=== PATIENT | male | born 1930 | race African-American/Black ===

== ENCOUNTER 2017-07-08 12:32 | Inpatient (IN) | payer OTHER ==
--- NOTE | 2017-07-08 12:52 | Emergency Department Report ---
Chief Complaint: Abdominal Pain Stated Complaint: RIGHT UPPER QUAD PAIN Time Seen by Provider: 07/08/17 12:49 - HPI History of Present Illness: PT brought to ED for RUQ pain. PT was seen at [facility] and told to go to ED. - ROS Review of Systems: + abd pain + abd swellin + constipation - vomiting - Exam Physical Exam: abd rounded, RUQ ttp MSE screening note: Focused history and physical exam performed. Due to findings the following was ordered: labs, us ED Disposition for MSE Condition: Stable
--- NOTE | 2017-07-08 14:30 | Ultrasound Report ---
Ultrasound of the right upper quadrant. History: Right upper quadrant pain. Findings: The abdominal aorta and liver are normal. The gallbladder is normal in size. There are low level dependent echoes within the gallbladder lumen with no acoustic shadowing. The wall of the gallbladder is normal in thickness. The common duct is normal in caliber. The right kidney is on the low side of normal measuring 8.7 cm in longitudinal axis. There is increased echogenicity of the renal parenchyma. There is no evidence of renal mass or hydronephrosis. The pancreas is not well-demonstrated due to technical factors. Impression: 1. Gallbladder sludge. 2. Evidence of medical renal disease.
--- NOTE | 2017-07-08 14:40 | Emergency Department Report ---
ED Abdominal Pain HPI - General Chief Complaint: Abdominal Pain Stated Complaint: RIGHT UPPER QUAD PAIN Time Seen by Provider: 07/08/17 12:49 Source: family Mode of arrival: Ambulatory Limitations: Language Barrier - History of Present Illness Initial Comments: 86-year-old male here with complaints of 3 days of abdominal pain. Patient is very tender in his right upper quadrant. He's been having some fever and nausea but no vomiting. He feels fairly uncomfortable. He is [place] speaking and I'm using his son as an retail sales advisor. He's had no blood in his stool but has felt somewhat constipated. MD Complaint: abdominal pain -: Gradual, days(s) (3) Location: RUQ Radiation: none Migration to: no migration Severity: moderate Consistency: constant, colicky Improves With: nothing Worsens With: nothing Associated Symptoms: nausea, fever. denies: vomiting, diarrhea - Related Data Allergies Allergy/AdvReac Type Severity Reaction Status Date / Time No Known Allergies Allergy Unverified 07/08/17 14:16 ED Review of Systems ROS: Stated complaint: RIGHT UPPER QUAD PAIN Other details as noted in HPI Comment: All other systems reviewed and negative Constitutional: denies: chills, fever ENT: denies: ear pain, throat pain Respiratory: denies: cough, shortness of breath, wheezing Cardiovascular: denies: chest pain, palpitations Endocrine: no symptoms reported Gastrointestinal: abdominal pain, nausea. denies: diarrhea Genitourinary: denies: urgency, dysuria Musculoskeletal: denies: back pain, joint swelling, arthralgia Skin: denies: rash, lesions Neurological: denies: headache, weakness, paresthesias Psychiatric: denies: anxiety, depression Hematological/Lymphatic: denies: easy bleeding, easy bruising ED Past Medical Hx - Past Medical History Previous Medical History?: Yes Hx Hypertension: Yes - Family History Family history: no significant - Social History Smoking Status: Never Smoker Substance Use Type: None ED Physical Exam - General Limitations: Language Barrier General appearance: alert, in no apparent distress - Head Head exam: Present: atraumatic, normocephalic - Eye Eye exam: Present: normal appearance. Absent: scleral icterus, conjunctival injection - ENT ENT exam: Present: mucous membranes moist - Neck Neck exam: Present: normal inspection. Absent: lymphadenopathy, thyromegaly - Respiratory Respiratory exam: Present: normal lung sounds bilaterally. Absent: respiratory distress - Cardiovascular Cardiovascular Exam: Present: regular rate, normal rhythm. Absent: systolic murmur, diastolic murmur, rubs, gallop - GI/Abdominal GI/Abdominal exam: Present: soft, distended, tenderness, guarding, normal bowel sounds, hypoactive bowel sounds. Absent: rebound - Rectal Rectal exam: Present: deferred - Extremities Exam Extremities exam: Present: normal inspection - Back Exam Back exam: Present: normal inspection - Neurological Exam Neurological exam: Present: alert, oriented X3 - Psychiatric Psychiatric exam: Present: normal affect, normal mood - Skin Skin exam: Present: warm, dry, intact, normal color. Absent: rash ED Course Vital Signs 07/08/17 07/08/17 12:48 14:39 Temperature 98.4 F 98.4 F Pulse Rate 95 H 80 Respiratory 16 20 Rate Blood Pressure 112/66 Blood Pressure 148/91 [Left] O2 Sat by Pulse 96 94 Oximetry ED Medical Decision Making - Lab Data Result diagrams: 07/08/17 Unknown Laboratory Results - last 24 hr 07/08/17 07/08/17 07/08/17 15:06 Unknown Unknown Sodium 134 L Potassium 5.1 H Chloride 99.8 Carbon Dioxide 18 L Anion Gap 21 BUN 28 H Creatinine 2.8 H Estimated GFR 22 BUN/Creatinine Ratio 10 Glucose 132 H Lactic Acid 1.70 Calcium 8.7 Total Bilirubin 0.70 AST 44 H ALT 45 Alkaline Phosphatase 195 H Ammonia 26.0 Total Protein 7.4 Albumin 3.9 Albumin/Globulin Ratio 1.1 Lipase 40 - Radiology Data Radiology results: report reviewed, image reviewed - Medical Decision Making 86-year-old male with complaint of abdominal pain and right upper quadrant tenderness. Patient has felt worse for the last 3 days and fever. His ultrasound shows only sludge. Pending labs. Concern for biliary/abdominal/ liver pathology. CT of abdomen ordered as ultrasound not definitive. CBC still pending. Discussed case with hospitalist and plan to admit the patient to the hospitalist service. Portions of this chart were dictated with dictation software. There may be dictation errors contained within this note. Critical care attestation.: If time is entered above; I have spent that time in minutes in the direct care of this critically ill patient, excluding procedure time. ED Disposition Clinical Impression: Abdominal pain Disposition: - OP ADMIT IP TO THIS HOSP Is pt being admited?: Yes Condition: Stable Referrals: PRIMARY CARE,MD [Primary Care Provider] - 3-5 Days
[2017-07-08] MEDS ORDERED: NACL 0.9% 1000 ML 1,000 ML IV ONE (14:43)
[2017-07-08 15:12] LABS: Albumin 3.9 g/dL (3.9-5); Bilirubin,Total 0.7 mg/dL (0.1-1.2); Calcium 8.7 mg/dL (8.4-10.2); Total Protein 7.4 g/dL (6.3-8.2)
[2017-07-08 15:13] LABS: Albumin/Globulin Ratio 1.1 %; Chloride 99.8 mmol/L (98-107); Potassium 5.1 mmol/L (3.6-5.0)
[2017-07-08 15:44] LABS: Hematocrit 34.6 % (35.5-45.6); Hemoglobin 11.3 gm/dl (11.8-15.2); Mean Corpuscular HGB Conc 33 % (32-34); Mean Corpuscular Hemoglobin 30 pg (28-32); Mean Corpuscular Volume 91 fl (84-94); Platelet Count 229 K/mm3 (140-440); Red Blood Count 3.81 M/mm3 (3.65-5.03); Red Cell Distribution Width 14.2 % (13.2-15.2)
[2017-07-08 15:49] LABS: White Blood Count 20.7 K/mm3 (4.5-11.0)
[2017-07-08 15:52] LABS: INR 1.17 (0.87-1.13)
[2017-07-08 15:54] LABS: Partial Thromboplastin Time 56.2 Sec. (24.2-36.6)
--- NOTE | 2017-07-08 16:25 | Cat Scan Report ---
CT of the abdomen and pelvis without contrast. History: Right upper quadrant pain. Findings: There is a small right pleural effusion. The heart is enlarged. The liver, spleen, and pancreas are normal. Gallbladder is enlarged with thickening of gallbladder [place] and extensive pericholecystic inflammatory changes. No definite evidence of gallstones. A large left renal cyst is present. There are no other significant renal abnormalities. There is no adenopathy within the retroperitoneum. The prostate is moderately enlarged. No additional pelvic masses are seen. The Impression: Enlarged gallbladder with marked thickening of the gallbladder wall and extensive pericholecystic inflammatory changes. No gallstones are seen. Acalculus cholecystitis is suspected. A nuclear hepatobiliary scan may be useful. 2. Left renal cyst. 3. Nonspecific prostatic enlargement.
[2017-07-08] MEDS ORDERED: ZOSYN/NS 4.5GM/100ML 4.5 GM/100 ML VIAL IV ONE (16:26)
[2017-07-08 16:27] LABS: Bilirubin,Urine NEG (Negative); Blood,Urine NEG (Negative); Ketones,Urine NEG (Negative); Leukocyte Esterase,Urine NEG (Negative); Mucus,Urine FEW /HPF; Nitrite,Urine NEG (Negative); Urobilinogen,Urine < 2.0 mg/dL (<2.0)
--- NOTE | 2017-07-08 16:41 | Event Note ---
Date: 07/08/17 CT scan suggests acalculous cholecystitis. Leukocytosis of 20 is noted and appreciated. Case is discussed with general surgeon on-call, Dr. Warren, who agrees to follow in consultation. He recommends HIDA nuclear medicine study, nothing by mouth after midnight, and no narcotics for at least 8 hours prior to acquisition of nuclear medicine study. He agrees with IV antibiotics. Vital Signs 07/08/17 07/08/17 07/08/17 12:48 14:39 16:11 Temperature 98.4 F 98.4 F 98.8 F Pulse Rate 95 H 80 98 H Respiratory 16 20 24 Rate Blood Pressure 112/66 Blood Pressure 148/91 139/69 [Left] O2 Sat by Pulse 96 94 95 Oximetry Lab Results 07/08/17 07/08/17 07/08/17 Range/Units 15:06 16:08 Unknown WBC 20.7 H (4.5-11.0) K/mm3 RBC 3.81 (3.65-5.03) M/mm3 Hgb 11.3 L (11.8-15.2) gm/dl Hct 34.6 L (35.5-45.6) % MCV 91 (84-94) fl MCH 30 (28-32) pg MCHC 33 (32-34) % RDW 14.2 (13.2-15.2) % Plt Count 229 (140-440) K/mm3 PT (12.2-14.9) Sec. INR (0.87-1.13) APTT (24.2-36.6) Sec. Sodium (137-145) mmol/L Potassium (3.6-5.0) mmol/L Chloride (98-107) mmol/L Carbon Dioxide (22-30) mmol/L Anion Gap mmol/L BUN (9-20) mg/dL Creatinine (0.8-1.5) mg/dL Estimated GFR ml/min BUN/Creatinine Ratio % Glucose (75-100) mg/dL Lactic Acid 1.70 (0.7-2.0) mmol/L Calcium (8.4-10.2) mg/dL Total Bilirubin (0.1-1.2) mg/dL AST (5-40) units/L ALT (7-56) units/L Alkaline Phosphatase (35-129) units/L Ammonia (25-60) umol/L Total Protein (6.3-8.2) g/dL Albumin (3.9-5) g/dL Albumin/Globulin Ratio % Lipase (13-60) units/L Urine Color Green (Yellow) Urine Turbidity Clear (Clear) Urine pH 5.0 (5.0-7.0) Ur Specific [place] 1.016 (1.003-1.030) Urine Protein 100 mg/dl (Negative) mg/dL Urine Glucose (UA) 50 (Negative) mg/dL Urine Ketones Neg (Negative) mg/dL Urine Blood Neg (Negative) Urine Nitrite Neg (Negative) Urine Bilirubin Neg (Negative) Urine Urobilinogen < 2.0 (<2.0) mg/dL Ur Leukocyte Esterase Neg (Negative) Urine WBC (Auto) 1.0 (0.0-6.0) /HPF Urine RBC (Auto) 2.0 (0.0-6.0) /HPF Amorphous Crystals Few Urine Mucus Few /HPF 07/08/17 07/08/17 07/08/17 Range/Units Unknown Unknown Unknown WBC (4.5-11.0) K/mm3 RBC (3.65-5.03) M/mm3 Hgb (11.8-15.2) gm/dl Hct (35.5-45.6) % MCV (84-94) fl MCH (28-32) pg MCHC (32-34) % RDW (13.2-15.2) % Plt Count (140-440) K/mm3 PT 15.5 H (12.2-14.9) Sec. INR 1.17 H (0.87-1.13) APTT 56.2 H (24.2-36.6) Sec. Sodium 134 L (137-145) mmol/L Potassium 5.1 H (3.6-5.0) mmol/L Chloride 99.8 (98-107) mmol/L Carbon Dioxide 18 L (22-30) mmol/L Anion Gap 21 mmol/L BUN 28 H (9-20) mg/dL Creatinine 2.8 H (0.8-1.5) mg/dL Estimated GFR 22 ml/min BUN/Creatinine Ratio 10 % Glucose 132 H (75-100) mg/dL Lactic Acid (0.7-2.0) mmol/L Calcium 8.7 (8.4-10.2) mg/dL Total Bilirubin 0.70 (0.1-1.2) mg/dL AST 44 H (5-40) units/L ALT 45 (7-56) units/L Alkaline Phosphatase 195 H (35-129) units/L Ammonia 26.0 (25-60) umol/L Total Protein 7.4 (6.3-8.2) g/dL Albumin 3.9 (3.9-5) g/dL Albumin/Globulin Ratio 1.1 % Lipase 40 (13-60) units/L Urine Color (Yellow) Urine Turbidity (Clear) Urine pH (5.0-7.0) Ur Specific [place] (1.003-1.030) Urine Protein (Negative) mg/dL Urine Glucose (UA) (Negative) mg/dL Urine Ketones (Negative) mg/dL Urine Blood (Negative) Urine Nitrite (Negative) Urine Bilirubin (Negative) Urine Urobilinogen (<2.0) mg/dL Ur Leukocyte Esterase (Negative) Urine WBC (Auto) (0.0-6.0) /HPF Urine RBC (Auto) (0.0-6.0) /HPF Amorphous Crystals Urine Mucus /HPF
--- NOTE | 2017-07-08 17:05 | Progress Note ---
Assessment and Plan Full consult dictateds 86 y/o male c/o RUQ abd pain Abd 1+ distended. RUQ tenderness CT abd - distended GB wall with thickened wall and surrounding inflammation imp r/o acute cholecystitis pt has compromised renal function. enlarged heart on X-ray. age. high surgical risk rec IR eval for cholecystosotomy tube drainage keep npo start IV zosyn will follow thanks. Objective Vital Signs - 12hr 07/08/17 07/08/17 07/08/17 12:48 14:39 16:11 Temperature 98.4 F 98.4 F 98.8 F Pulse Rate 95 H 80 98 H Respiratory 16 20 24 Rate Blood Pressure 112/66 Blood Pressure 148/91 139/69 [Left] O2 Sat by Pulse 96 94 95 Oximetry - Labs 07/08/17 Unknown 07/08/17 Unknown Diabetes panel 07/08/17 Range/Units Unknown Sodium 134 L (137-145) mmol/L Potassium 5.1 H (3.6-5.0) mmol/L Chloride 99.8 (98-107) mmol/L Carbon Dioxide 18 L (22-30) mmol/L BUN 28 H (9-20) mg/dL Creatinine 2.8 H (0.8-1.5) mg/dL Glucose 132 H (75-100) mg/dL Calcium 8.7 (8.4-10.2) mg/dL AST 44 H (5-40) units/L ALT 45 (7-56) units/L Alkaline Phosphatase 195 H (35-129) units/L Total Protein 7.4 (6.3-8.2) g/dL Albumin 3.9 (3.9-5) g/dL Calcium panel 07/08/17 Range/Units Unknown Calcium 8.7 (8.4-10.2) mg/dL Albumin 3.9 (3.9-5) g/dL Pituitary panel 07/08/17 Range/Units Unknown Sodium 134 L (137-145) mmol/L Potassium 5.1 H (3.6-5.0) mmol/L Chloride 99.8 (98-107) mmol/L Carbon Dioxide 18 L (22-30) mmol/L BUN 28 H (9-20) mg/dL Creatinine 2.8 H (0.8-1.5) mg/dL Glucose 132 H (75-100) mg/dL Calcium 8.7 (8.4-10.2) mg/dL Adrenal panel 07/08/17 Range/Units Unknown Sodium 134 L (137-145) mmol/L Potassium 5.1 H (3.6-5.0) mmol/L Chloride 99.8 (98-107) mmol/L Carbon Dioxide 18 L (22-30) mmol/L BUN 28 H (9-20) mg/dL Creatinine 2.8 H (0.8-1.5) mg/dL Glucose 132 H (75-100) mg/dL Calcium 8.7 (8.4-10.2) mg/dL Total Bilirubin 0.70 (0.1-1.2) mg/dL AST 44 H (5-40) units/L ALT 45 (7-56) units/L Alkaline Phosphatase 195 H (35-129) units/L Total Protein 7.4 (6.3-8.2) g/dL Albumin 3.9 (3.9-5) g/dL
[2017-07-08 17:35] LABS: Hematocrit 34.4 % (35.5-45.6); Hemoglobin 11.3 gm/dl (11.8-15.2); Mean Corpuscular HGB Conc 33 % (32-34); Mean Corpuscular Hemoglobin 30 pg (28-32); Mean Corpuscular Volume 90 fl (84-94); Platelet Count 214 K/mm3 (140-440); Red Cell Distribution Width 13.9 % (13.2-15.2)
[2017-07-08 17:36] LABS: Basophils % (Manual) 0 % (0.0-1.8); Blastocytes % (Manual) 0 %; Eosinophils % (Manual) 0 % (0.0-4.3); Platelet Estimate Consistent w Auto; RBC Morphology Normal; Total Cells Counted Percent 0
[2017-07-08 17:37] LABS: Diff Status Complete
[2017-07-08 17:37] LABS: White Blood Count 20.9 K/mm3 (4.5-11.0)
[2017-07-08] MEDS ORDERED: SUBLIMAZE IV ONE (18:02)
[2017-07-08 18:15] LABS: Albumin 3.6 g/dL (3.9-5); Albumin/Globulin Ratio 1.4 %; Bilirubin,Total 0.8 mg/dL (0.1-1.2); Calcium 7.8 mg/dL (8.4-10.2); Chloride 104.3 mmol/L (98-107); Potassium 5.2 mmol/L (3.6-5.0); Total Protein 6.2 g/dL (6.3-8.2)
[2017-07-08] MEDS ORDERED: ATIVAN ONE (18:44)
[2017-07-08] MEDS ORDERED: ATIVAN IV ONE (18:53)
--- NOTE | 2017-07-08 20:50 | History and Physical Report ---
History of Present Illness Date of examination: 07/08/17 Date of admission: 07/08/2017 Chief complaint: Chief complaint: Acute abdominal pain for 2 days History of present illness: History of present illness: A 56-year-old male presents with 2 days of severe abdominal pain. Pain is in the right upper quadrant. Patient also has a low-grade fever and nausea but no vomiting. Pain is about 10 on a scale of 1- 10. Son is at the bedside was the food and drink factory workers. No hematemesis or melena. Pain is sharp in nature. No exacerbating or relieving factors. Pain is localized. No radiation. His surgery symptoms of nausea and fever no vomiting no diarrhea. In the emergency room patient became delirious and confused after the CAT scan was done. Patient also expressed suicidal thoughts for a moment and then he was better. Patient able to go to the restroom but with help . Review of System: Constitutional: no fever, no chills, no weight loss Ears, eyes, nose, mouth and throat: no nasal congestion, no nasal discharge, no sinus pressure, no vision change, no red eye. Neck: No neck pain or rigidity. Cardiovascular: No chest pain, no orthopnea, no palpitations, no leg swelling Respiratory: No shortness of breath, no cough, no congestion, no wheezing Gastrointestinal: Acute abdominal pain, nausea present, no vomiting no hematemesis no melena Genitourinary : no dysuria, no hematuria Musculoskeletal: no joint swelling or muscle ache Integumentary: no rash, no pruritis Neurological: no parathesias, no numbness, no tingling Endocrine: no cold or heat intolerance, no polyuria or polydipsia Hematologic/Lymphatic: no easy bruising, no easy bleeding, no gland swelling Allergic/Immunologic: no urticaria, no angioedema Past History Past Medical History: GERD, hypertension, hyperlipidemia Past Surgical History: No surgical history Social history: no significant social history, lives with family Family history: hypertension Medications and Allergies Allergies Allergy/AdvReac Type Severity Reaction Status Date / Time No Known Allergies Allergy Unverified 07/08/17 14:16 Home Medications Medication Instructions Recorded Confirmed Last Taken Type AtorvaSTATin [Lipitor] 40 mg PO QHS 07/08/17 07/08/17 07/07/17 History Gabapentin [Neurontin] 100 mg PO Q8HR 07/08/17 07/08/17 07/07/17 History Ranitidine HCl [Acid Coat Maker] 150 mg PO PRN 07/08/17 07/08/17 07/08/17 History amLODIPine [Norvasc] 10 mg PO DAILY 07/08/17 07/08/17 07/07/17 History Doxycycline [Vibramycin CAP] 100 mg PO BID 14 Days 07/14/17 Unknown Rx Oxycodone HCl/Acetaminophen 1 each PO Q6HR PRN #20 tablet 07/14/17 Unknown Rx [Percocet 2.5/325 mg] Review of Systems All systems: negative Exam - Physical Exam Narrative exam: In moderate distress secondary to abdominal pain - Constitutional Vitals: Temp Pulse Resp BP Pulse Ox 98.8 F 105 H 28 H 120/64 95 07/08/17 16:11 07/08/17 19:30 07/08/17 19:30 07/08/17 19:30 07/08/17 19:30 General appearance: Present: mild distress, well-nourished - EENT Eyes: Present: PERRL ENT: hearing intact, clear oral mucosa - Neck Neck: Present: supple, normal ROM - Respiratory Respiratory effort: normal Respiratory: bilateral: CTA - Cardiovascular Heart rate: 80 Rhythm: regular Heart Sounds: Present: S1 & S2. Absent: rub, click - Extremities Extremities: no ischemia, pulses intact, pulses symmetrical, No edema Peripheral Pulses: within normal limits - Abdominal General gastrointestinal: Present: tender, normal bowel sounds, other ( regarding present in right upper quadrant) Localized gastrointestinal: guarding: diffuse, RUQ, rebound: RUQ Male genitourinary: Present: normal - Rectal Rectal Exam: stool brown - Integumentary Integumentary: Present: clear, warm, dry - Musculoskeletal Musculoskeletal: gait normal, strength equal bilaterally - Psychiatric Psychiatric: appropriate mood/affect, intact judgment & insight - Neurologic Neurologic: CNII-XII intact, moves all extremities - Allied Health Allied health notes reviewed: nursing, case management Results - Labs CBC & Chem 7: 07/14/17 03:39 07/14/17 03:39 Labs: Laboratory Last Values WBC 20.7 K/mm3 (4.5-11.0) H 07/08/17 Unknown RBC 3.81 M/mm3 (3.65-5.03) 07/08/17 Unknown Hgb 11.3 gm/dl (11.8-15.2) L 07/08/17 Unknown Hct 34.6 % (35.5-45.6) L 07/08/17 Unknown MCV 91 fl (84-94) 07/08/17 Unknown MCH 30 pg (28-32) 07/08/17 Unknown MCHC 33 % (32-34) 07/08/17 Unknown RDW 14.2 % (13.2-15.2) 07/08/17 Unknown Plt Count 229 K/mm3 (140-440) 07/08/17 Unknown Add Manual Diff Complete 07/08/17 Unknown Total Counted 100 07/08/17 Unknown Seg Neuts % (Manual) 2.0 % (40.0-70.0) L 07/08/17 Unknown Band Neutrophils % 89.0 % 07/08/17 Unknown Lymphocytes % (Manual) 9.0 % (13.4-35.0) L 07/08/17 Unknown Reactive Lymphs % (Man) 0 % 07/08/17 Unknown Monocytes % (Manual) 0 % (0.0-7.3) 07/08/17 Unknown Eosinophils % (Manual) 0 % (0.0-4.3) 07/08/17 Unknown Basophils % (Manual) 0 % (0.0-1.8) 07/08/17 Unknown Metamyelocytes % 0 % 07/08/17 Unknown Myelocytes % 0 % 07/08/17 Unknown Promyelocytes % 0 % 07/08/17 Unknown Blast Cells % 0 % 07/08/17 Unknown Nucleated RBC % Not Reportable 07/08/17 Unknown Seg Neutrophils # Man 0.4 K/mm3 (1.8-7.7) L 07/08/17 Unknown Band Neutrophils # 18.4 K/mm3 07/08/17 Unknown Lymphocytes # (Manual) 1.9 K/mm3 (1.2-5.4) 07/08/17 Unknown Abs React Lymphs (Man) 0.0 K/mm3 07/08/17 Unknown Monocytes # (Manual) 0.0 K/mm3 (0.0-0.8) 07/08/17 Unknown Eosinophils # (Manual) 0.0 K/mm3 (0.0-0.4) 07/08/17 Unknown Basophils # (Manual) 0.0 K/mm3 (0.0-0.1) 07/08/17 Unknown Metamyelocytes # 0.0 K/mm3 07/08/17 Unknown Myelocytes # 0.0 K/mm3 07/08/17 Unknown Promyelocytes # 0.0 K/mm3 07/08/17 Unknown Blast Cells # 0.0 K/mm3 07/08/17 Unknown WBC Morphology Not Reportable 07/08/17 Unknown Hypersegmented Neuts Not Reportable 07/08/17 Unknown Hyposegmented Neuts Not Reportable 07/08/17 Unknown Hypogranular Neuts Not Reportable 07/08/17 Unknown Hypersegmented Polys Cancelled 07/08/17 17:11 Smudge Cells Not Reportable 07/08/17 Unknown Toxic Granulation Not Reportable 07/08/17 Unknown Toxic Vacuolation Not Reportable 07/08/17 Unknown Dohle Bodies Not Reportable 07/08/17 Unknown Pelger-Huet Anomaly Not Reportable 07/08/17 Unknown Emperatriz Rods Not Reportable 07/08/17 Unknown Platelet Estimate Consistent w auto 07/08/17 Unknown Clumped Platelets Not Reportable 07/08/17 Unknown Plt Clumps, EDTA Not Reportable 07/08/17 Unknown Large Platelets Not Reportable 07/08/17 Unknown Giant Platelets Not Reportable 07/08/17 Unknown Platelet Satelliting Not Reportable 07/08/17 Unknown Plt Morphology Comment Not Reportable 07/08/17 Unknown RBC Morphology Normal 07/08/17 Unknown Dimorphic RBCs Not Reportable 07/08/17 Unknown Polychromasia Not Reportable 07/08/17 Unknown Hypochromasia Not Reportable 07/08/17 Unknown Poikilocytosis Not Reportable 07/08/17 Unknown Basophilic Stippling Cancelled 07/08/17 17:11 Anisocytosis Not Reportable 07/08/17 Unknown Microcytosis Not Reportable 07/08/17 Unknown Macrocytosis Not Reportable 07/08/17 Unknown Spherocytes Not Reportable 07/08/17 Unknown Pappenheimer Bodies Not Reportable 07/08/17 Unknown Sickle Cells Not Reportable 07/08/17 Unknown Target Cells Not Reportable 07/08/17 Unknown Tear Drop Cells Not Reportable 07/08/17 Unknown Ovalocytes Not Reportable 07/08/17 Unknown Stomatocytes Cancelled 07/08/17 17:11 Helmet Cells Not Reportable 07/08/17 Unknown [place] Bodies Not Reportable 07/08/17 Unknown Lutcher Rings Not Reportable 07/08/17 Unknown Christopher Cells Not Reportable 07/08/17 Unknown Bite Cells Not Reportable 07/08/17 Unknown Crenated Cell Not Reportable 07/08/17 Unknown Elliptocytes Not Reportable 07/08/17 Unknown Acanthocytes (Spur) Not Reportable 07/08/17 Unknown Rouleaux Not Reportable 07/08/17 Unknown Hemoglobin C Crystals Not Reportable 07/08/17 Unknown Schistocytes Not Reportable 07/08/17 Unknown Malaria parasites Not Reportable 07/08/17 Unknown Madhav Bodies Not Reportable 07/08/17 Unknown Hem Pathologist Commnt No 07/08/17 Unknown PT 15.5 Sec. (12.2-14.9) H 07/08/17 Unknown INR 1.17 (0.87-1.13) H 07/08/17 Unknown APTT 56.2 Sec. (24.2-36.6) H 07/08/17 Unknown Sodium 134 mmol/L (137-145) L 07/08/17 Unknown Potassium 5.1 mmol/L (3.6-5.0) H 07/08/17 Unknown Chloride 99.8 mmol/L (98-107) 07/08/17 Unknown Carbon Dioxide 18 mmol/L (22-30) L 07/08/17 Unknown Anion Gap 21 mmol/L 07/08/17 Unknown BUN 28 mg/dL (9-20) H 07/08/17 Unknown Creatinine 2.8 mg/dL (0.8-1.5) H 07/08/17 Unknown Estimated GFR 22 ml/min 07/08/17 Unknown BUN/Creatinine Ratio 10 % 07/08/17 Unknown Glucose 132 mg/dL (75-100) H 07/08/17 Unknown Lactic Acid 1.70 mmol/L (0.7-2.0) 07/08/17 15:06 Calcium 8.7 mg/dL (8.4-10.2) 07/08/17 Unknown Total Bilirubin 0.70 mg/dL (0.1-1.2) 07/08/17 Unknown AST 44 units/L (5-40) H 07/08/17 Unknown ALT 45 units/L (7-56) 07/08/17 Unknown Alkaline Phosphatase 195 units/L (35-129) H 07/08/17 Unknown Ammonia 26.0 umol/L (25-60) 07/08/17 Unknown Total Protein 7.4 g/dL (6.3-8.2) 07/08/17 Unknown Albumin 3.9 g/dL (3.9-5) 07/08/17 Unknown Albumin/Globulin Ratio 1.1 % 07/08/17 Unknown Amylase 59 units/L (27-131) 07/08/17 17:11 Lipase 40 units/L (13-60) 07/08/17 Unknown Urine Color Green (Yellow) 07/08/17 16:08 Urine Turbidity Clear (Clear) 07/08/17 16:08 Urine pH 5.0 (5.0-7.0) 07/08/17 16:08 Ur Specific [place] 1.016 (1.003-1.030) 07/08/17 16:08 Urine Protein 100 mg/dl mg/dL (Negative) 07/08/17 16:08 Urine Glucose (UA) 50 mg/dL (Negative) 07/08/17 16:08 Urine Ketones Neg mg/dL (Negative) 07/08/17 16:08 Urine Blood Neg (Negative) 07/08/17 16:08 Urine Nitrite Neg (Negative) 07/08/17 16:08 Urine Bilirubin Neg (Negative) 07/08/17 16:08 Urine Urobilinogen < 2.0 mg/dL (<2.0) 07/08/17 16:08 Ur Leukocyte Esterase Neg (Negative) 07/08/17 16:08 Urine WBC (Auto) 1.0 /HPF (0.0-6.0) 07/08/17 16:08 Urine RBC (Auto) 2.0 /HPF (0.0-6.0) 07/08/17 16:08 Amorphous Crystals Few 07/08/17 16:08 Urine Mucus Few /HPF 07/08/17 16:08 - Imaging and Cardiology EKG: report reviewed CT scan - abdomen: report reviewed (enlarged gallbladder with moderate thickening of the gallbladder wall and extensive pericholecystic inflammatory changes. No gallstones are seen. Acalculous cholecystitis is suspected a nuclear hepatobiliary scan may be useful) Assessment and Plan Advance Directives: Yes (full code) VTE prophylaxis?: Chemical Plan of care discussed with patient/family: Yes - Patient Problems (1) Sepsis Status: Acute Qualifiers: Sepsis type: sepsis due to unspecified organism Qualified Code(s): A41.9 - Sepsis, unspecified organism Plan to address problem: Secondary to cholecystitis. Patient initiated on IV fluids and IV Zosyn. Lactic acid ordered. (2) Acute cholecystitis Status: Acute Plan to address problem: Surgery was consulted. Agree with the surgical consult. Patient to get cholecystostomy because of his age and being very frail. No cholecystectomy at this point. Patient also to get IV fluids and IV antibiotics in the form of IV Zosyn for broad-spectrum coverage. (3) Hypertension Status: Chronic Qualifiers: Hypertension type: essential hypertension Qualified Code(s): I10 - Essential (primary) hypertension Plan to address problem: Continue Catapres patch TTS 1 every weekly. We will hold his oral antihypertensives (4) Hyperlipidemia Status: Chronic Qualifiers: Hyperlipidemia type: mixed hyperlipidemia Qualified Code(s): E78.2 - Mixed hyperlipidemia Plan to address problem: We will hold the statins for time being and resume at the time of discharge (5) Gastroesophageal reflux disease Status: Chronic Qualifiers: Esophagitis presence: without esophagitis Qualified Code(s): K21.9 - Gastro -esophageal reflux disease without esophagitis Plan to address problem: Patient on Protonix. (6) Hyperkalemia Status: Acute Plan to address problem: Mild. Should correct with IV fluids (7) Delirium Status: Acute Plan to address problem: Probably secondary to sepsis and cholecystitis. IV Dilaudid for pain when necessary (8) Suicidal ideation Status: Acute Plan to address problem: Very fleeting and is resolved. Mental health consult requested. 1013 initiated. (9) DVT prophylaxis Status: Acute Plan to address problem: SCDs only at this point
[2017-07-08] MEDS ORDERED: DULCOLAX PR PRN (20:51)
[2017-07-08] MEDS ORDERED: TYLENOL PO PRN (20:51)
[2017-07-08] MEDS ORDERED: MILK OF MAGNESIA PO PRN (20:51)
[2017-07-08] MEDS ORDERED: D5NS 1,000 ML IV SCH (21:00)
[2017-07-08] MEDS ORDERED: PROTONIX IV SCH (22:00)
[2017-07-08] MEDS ORDERED: ZOSYN/NS 4.5GM/100ML 4.5 GM/100 ML VIAL IV SCH (22:00)
[2017-07-08] MEDS ORDERED: PEPCID IV SCH ×2 (22:00)
[2017-07-08] MEDS ORDERED: CATAPRES-TTS PATCH TD SCH ×2 (22:00)
[2017-07-08] MEDS ORDERED: PEPCID IV ONE (22:10)
[2017-07-08] MEDS: PEPCID IV SCH (22:11)
--- NOTE | 2017-07-09 00:24 | Consultation ---
REASON FOR CONSULTATION: Rule out acute cholecystitis. HISTORY OF PRESENT ILLNESS: The patient is a pleasant 86-year-old [place] gentleman who does not speak Polish. History is taken through an landscape engineer and family member. The patient is being admitted through the ER at this time with a chief complaint of right upper quadrant abdominal pain. Denies any nausea or vomiting, but \\"is not eating much.\\" He also has been running a low-grade temperature at home. PAST MEDICAL HISTORY: Pertinent for what appears to be decreased renal function. Family states that the patient underwent dialysis for a time while in [place], but currently is off dialysis. Also, history of hypertension. PAST SURGICAL HISTORY: Negative. ALLERGIES: No known allergies. MEDICATIONS: Include amlodipine and gabapentin. FAMILY HISTORY: Negative. SOCIAL HISTORY: Denies any smoking or drinking. REVIEW OF SYSTEMS: Noncontributory. PHYSICAL EXAMINATION: GENERAL: At this time reveals, the patient to be awake, alert, cooperative, in moderate discomfort, but no acute distress. VITAL SIGNS: Temperature is currently not on chart. Blood pressure 142/73, pulse of 96, respirations of 22. HEENT: Pupils are equal and reactive to light and accommodation. Sclerae are nonicteric at this time. ABDOMEN: Examination of the abdomen reveals it to be 1+ distended with some mild tenderness noted in the right upper quadrant. Bowel sounds are somewhat hypoactive. LABORATORY DATA: Lab work at present includes a CBC, which shows a white count of 20.7, H and H is 11.3 and 34.6. PT is 15.5, PTT is also elevated at 56.2. BUN is 28, but creatinine is elevated at 2.8. Electrolytes show high potassium of 5.1. LFTs are essentially normal. Bilirubin is 0.7. AST is slightly elevated at 44, ALT is normal at 45 and alkaline phosphatase is slightly elevated at 195. Gallbladder ultrasound as well as CT scan of the abdomen had been performed, which I have reviewed with Dr. Klein, radiologist. Though no stones are seen on ultrasound, there is a question of a possible sludge. CT scan, however, is impressive as far as delineating an enlarged gallbladder with thickened gallbladder wall and surrounding inflammation. IMPRESSION: 1. At this time is that of an 86-year-old gentleman with renal disease and elevated creatinine. 2. Questionable heart disease with an enlarged heart on x-rays. 3. Rule out acute cholecystitis. RECOMMENDATIONS: At this time is to keep the patient n.p.o., start IV fluid hydration. Start IV Zosyn. We will consult interventional radiologist to assess for possible CT-guided cholecystostomy tube drainage. We will follow up closely with you. Thank you very much for consultation. JOB# [id number] JAIR/NTS
[2017-07-09] MEDS: ZOSYN/NS 4.5GM/100ML 4.5 GM/100 ML VIAL IV SCH ×2 (04:45→17:10)
[2017-07-09 05:44] LABS: Basophils % (Auto) 0.2 % (0.0-1.8); Eosinophils % (Auto) 0.6 % (0.0-4.3); Hematocrit 31.4 % (35.5-45.6); Hemoglobin 10.2 gm/dl (11.8-15.2); Mean Corpuscular HGB Conc 33 % (32-34); Mean Corpuscular Hemoglobin 29 pg (28-32); Mean Corpuscular Volume 90 fl (84-94); Platelet Count 220 K/mm3 (140-440); Red Blood Count 3.47 M/mm3 (3.65-5.03); Red Cell Distribution Width 14.3 % (13.2-15.2); White Blood Count 15.5 K/mm3 (4.5-11.0)
[2017-07-09 06:05] LABS: Albumin 3.2 g/dL (3.9-5); Albumin/Globulin Ratio 0.9 %; Calcium 7.9 mg/dL (8.4-10.2); Potassium 4.6 mmol/L (3.6-5.0); Total Protein 6.8 g/dL (6.3-8.2)
--- NOTE | 2017-07-09 07:55 | Progress Note ---
Assessment and Plan HD #1 Pt status quo. could not communicate with him as no family to translate in room at present. Abd exam - unchanged lower wbc noted. on zosyn awaiting IR eval for cholecystostomy tube drainage Selected Entries 07/09/17 04:05 Temperature 98.8 F Respiratory 20 Rate Blood Pressure 142/78 [Left] Laboratory Tests 07/08/17 07/09/17 07/09/17 Unknown 05:28 05:28 WBC 20.7 H 15.5 H Hgb 11.3 L 10.2 L Hct 34.6 L 31.4 L Sodium 139 Potassium 4.6 Carbon Dioxide 16 L BUN 24 H Creatinine 2.9 H Total Bilirubin 1.00 AST 16 ALT 20 Alkaline Phosphatase 168 H Objective Vital Signs - 12hr 07/08/17 07/08/17 07/08/17 21:00 21:15 21:30 Temperature Pulse Rate 109 H 101 H 94 H Pulse Rate [ Right Dorsalis Pedis] Respiratory 17 28 H 23 Rate Blood Pressure 143/66 143/66 130/71 Blood Pressure [Left] O2 Sat by Pulse 95 98 98 Oximetry 07/08/17 07/08/17 07/08/17 21:45 22:00 22:11 Temperature Pulse Rate 93 H 93 H 99 H Pulse Rate [ Right Dorsalis Pedis] Respiratory 17 23 Rate Blood Pressure 130/71 135/70 135/70 Blood Pressure [Left] O2 Sat by Pulse 97 97 Oximetry 07/08/17 07/08/17 07/09/17 22:15 23:48 01:39 Temperature 99.2 F Pulse Rate 90 104 H Pulse Rate [ 102 H Right Dorsalis Pedis] Respiratory 19 18 16 Rate Blood Pressure 135/70 Blood Pressure 127/73 [Left] O2 Sat by Pulse 99 95 95 Oximetry 07/09/17 04:05 Temperature 98.8 F Pulse Rate 95 H Pulse Rate [ Right Dorsalis Pedis] Respiratory 20 Rate Blood Pressure Blood Pressure 142/78 [Left] O2 Sat by Pulse 96 Oximetry - Labs 07/09/17 05:28 07/09/17 05:28 Diabetes panel 07/08/17 07/09/17 Range/Units Unknown 05:28 Sodium 134 L 139 (137-145) mmol/L Potassium 5.1 H 4.6 (3.6-5.0) mmol/L Chloride 99.8 106.0 (98-107) mmol/L Carbon Dioxide 18 L 16 L (22-30) mmol/L BUN 28 H 24 H (9-20) mg/dL Creatinine 2.8 H 2.9 H (0.8-1.5) mg/dL Glucose 132 H 122 H (75-100) mg/dL Calcium 8.7 7.9 L (8.4-10.2) mg/dL AST 44 H 16 (5-40) units/L ALT 45 20 (7-56) units/L Alkaline Phosphatase 195 H 168 H (35-129) units/L Total Protein 7.4 6.8 (6.3-8.2) g/dL Albumin 3.9 3.2 L (3.9-5) g/dL Calcium panel 07/08/17 07/09/17 Range/Units Unknown 05:28 Calcium 8.7 7.9 L (8.4-10.2) mg/dL Albumin 3.9 3.2 L (3.9-5) g/dL Pituitary panel 07/08/17 07/09/17 Range/Units Unknown 05:28 Sodium 134 L 139 (137-145) mmol/L Potassium 5.1 H 4.6 (3.6-5.0) mmol/L Chloride 99.8 106.0 (98-107) mmol/L Carbon Dioxide 18 L 16 L (22-30) mmol/L BUN 28 H 24 H (9-20) mg/dL Creatinine 2.8 H 2.9 H (0.8-1.5) mg/dL Glucose 132 H 122 H (75-100) mg/dL Calcium 8.7 7.9 L (8.4-10.2) mg/dL Adrenal panel 07/08/17 07/09/17 Range/Units Unknown 05:28 Sodium 134 L 139 (137-145) mmol/L Potassium 5.1 H 4.6 (3.6-5.0) mmol/L Chloride 99.8 106.0 (98-107) mmol/L Carbon Dioxide 18 L 16 L (22-30) mmol/L BUN 28 H 24 H (9-20) mg/dL Creatinine 2.8 H 2.9 H (0.8-1.5) mg/dL Glucose 132 H 122 H (75-100) mg/dL Calcium 8.7 7.9 L (8.4-10.2) mg/dL Total Bilirubin 0.70 1.00 (0.1-1.2) mg/dL AST 44 H 16 (5-40) units/L ALT 45 20 (7-56) units/L Alkaline Phosphatase 195 H 168 H (35-129) units/L Total Protein 7.4 6.8 (6.3-8.2) g/dL Albumin 3.9 3.2 L (3.9-5) g/dL
--- NOTE | 2017-07-09 09:01 | Consultation ---
History of Present Illness - Reason for Consult Consult date: 07/09/17 - History of Present Illness 86 year old male seen in consult for possible cholecystostomy (alejo) tube placement. He'd presented with decreased appetite and mild RUQ pain with leukocytosis. CT reveals evidence of inflammation in the gallbladder fossa. US revealed a distended GB with sludge. A potential diagnosis of acalculous cholecystitis was determined, and a surgical consult was placed. A surgical consult was performed, and due the patient's age and possible cardiac issues, a alejo tube was recommended. Past History Past Medical History: GERD, hypertension, hyperlipidemia Past Surgical History: No surgical history Social history: no significant social history, lives with family Family history: hypertension Medications and Allergies Allergies Allergy/AdvReac Type Severity Reaction Status Date / Time No Known Allergies Allergy Unverified 07/08/17 14:16 Home Medications Medication Instructions Recorded Confirmed Last Taken Type Acetaminophen [Shake That Ache] 500 mg PO Q6H 07/08/17 07/08/17 07/08/17 History AtorvaSTATin [Lipitor] 40 mg PO QHS 07/08/17 07/08/17 07/07/17 History Gabapentin [Neurontin] 100 mg PO Q8HR 07/08/17 07/08/17 07/07/17 History Ranitidine HCl [Acid Executive [employer] Host] 150 mg PO PRN 07/08/17 07/08/17 07/08/17 History amLODIPine [Norvasc] 10 mg PO DAILY 07/08/17 07/08/17 07/07/17 History Active Meds: Active Medications Acetaminophen (Tylenol) 650 mg PO Q4H PRN PRN Reason: Pain MILD(1-3)/Fever >100.5/MOTT Bisacodyl (Dulcolax) 10 mg MN QDAY PRN PRN Reason: Constipation unrelieved by MOM Clonidine HCl (Catapres-Tts Patch) 0.1 mg TD Tu [facility] Last Admin: 07/08/17 22:11 Dose: 0.1 mg Famotidine (Pepcid) 10 mg IV BID MAXIMILIANO Last Admin: 07/08/17 22:11 Dose: 10 mg Hydromorphone HCl (Dilaudid) 0.5 mg IV Q3H PRN PRN Reason: Pain , Severe (7-10) Dextrose/Sodium Chloride (D5ns) 1,000 mls @ 100 mls/hr IV DIRECT MAXIMILIANO Piperacillin Sod/Tazobactam Sod (Zosyn/Ns 4.5gm/100ml) 4.5 gm in 100 mls @ 200 mls/hr IV Q12H MAXIMILIANO PRN Reason: Protocol Last Admin: 07/09/17 04:45 Dose: 200 mls/hr Magnesium Hydroxide (Milk Of Magnesia) 30 ml PO Q4H PRN PRN Reason: Constipation Ondansetron HCl (Zofran) 4 mg IV Q8H PRN PRN Reason: N/V unrelieved by Reglan Exam - Constitutional Vitals: Temp Pulse Resp BP Pulse Ox 99.1 F 91 H 20 126/60 94 07/09/17 08:03 07/09/17 08:03 07/09/17 08:03 07/09/17 08:03 07/09/17 08:03 General appearance: Present: no acute distress - Respiratory Respiratory effort: normal - Abdominal General gastrointestinal: Present: soft, tender (mild), non-distended Localized gastrointestinal: tender: RUQ Results - Labs CBC & Chem 7: 07/09/17 05:28 07/09/17 05:28 Labs: Abnormal lab results 07/08/17 07/08/17 07/08/17 Range/Units Unknown Unknown Unknown WBC 20.7 H (4.5-11.0) K/mm3 RBC (3.65-5.03) M/mm3 Hgb 11.3 L (11.8-15.2) gm/dl Hct 34.6 L (35.5-45.6) % Lymph % (Auto) (13.4-35.0) % [place] % (Auto) (0.0-7.3) % Lymph # (1.2-5.4) K/mm3 [place] # (0.0-0.8) K/mm3 Seg Neutrophils % (40.0-70.0) % Seg Neuts % (Manual) 2.0 L (40.0-70.0) % Lymphocytes % (Manual) 9.0 L (13.4-35.0) % Seg Neutrophils # (1.8-7.7) K/mm3 Seg Neutrophils # Man 0.4 L (1.8-7.7) K/mm3 PT 15.5 H (12.2-14.9) Sec. INR 1.17 H (0.87-1.13) APTT 56.2 H (24.2-36.6) Sec. Sodium 134 L (137-145) mmol/L Potassium 5.1 H (3.6-5.0) mmol/L Carbon Dioxide 18 L (22-30) mmol/L BUN 28 H (9-20) mg/dL Creatinine 2.8 H (0.8-1.5) mg/dL Glucose 132 H (75-100) mg/dL Calcium (8.4-10.2) mg/dL AST 44 H (5-40) units/L Alkaline Phosphatase 195 H (35-129) units/L Albumin (3.9-5) g/dL Amylase (27-131) units/L 07/09/17 07/09/17 Range/Units 05:28 05:28 WBC 15.5 H (4.5-11.0) K/mm3 RBC 3.47 L (3.65-5.03) M/mm3 Hgb 10.2 L (11.8-15.2) gm/dl Hct 31.4 L (35.5-45.6) % Lymph % (Auto) 6.2 L (13.4-35.0) % [place] % (Auto) 11.5 H (0.0-7.3) % Lymph # 1.0 L (1.2-5.4) K/mm3 [place] # 1.8 H (0.0-0.8) K/mm3 Seg Neutrophils % 81.5 H (40.0-70.0) % Seg Neuts % (Manual) (40.0-70.0) % Lymphocytes % (Manual) (13.4-35.0) % Seg Neutrophils # 12.6 H (1.8-7.7) K/mm3 Seg Neutrophils # Man (1.8-7.7) K/mm3 PT (12.2-14.9) Sec. INR (0.87-1.13) APTT (24.2-36.6) Sec. Sodium (137-145) mmol/L Potassium (3.6-5.0) mmol/L Carbon Dioxide 16 L (22-30) mmol/L BUN 24 H (9-20) mg/dL Creatinine 2.9 H (0.8-1.5) mg/dL Glucose 122 H (75-100) mg/dL Calcium 7.9 L (8.4-10.2) mg/dL AST (5-40) units/L Alkaline Phosphatase 168 H (35-129) units/L Albumin 3.2 L (3.9-5) g/dL Amylase 17 L (27-131) units/L Assessment and Plan After reviewing the history and physical exam, I believe it is appropriate to place a alejo tube in this patient today. Surgery has been consulted and will follow the patient as well. The alejo tube is a temporizing measure until the patient is optimized for cholecystectomy.
[2017-07-09] MEDS: PEPCID IV SCH ×2 (09:04→21:47)
--- NOTE | 2017-07-09 12:37 | Nuclear Medicine Report ---
HEPATOBILIARY SCAN: History: Abdominal pain. CT abdomen and pelvis and ultrasound right upper quadrant performed yesterday were reviewed. HIDA scan demonstrates nonvisualization of the gallbladder out to 2 hours of imaging. There is normal appearance of the radiotracer within the liver parenchyma, common bile duct and bowel loops. Reflux into the stomach is noted. IMPRESSION: Nonvisualization of the gallbladder consistent with acute cholecystitis.
--- NOTE | 2017-07-09 12:42 | Progress Note ---
Assessment and Plan /Sepsis Secondary to acute cholecystitis. Patient initiated on IV fluids and IV Zosyn. trend Lactic acid /Acute cholecystitis Surgery was consulted. Patient not to get cholecystostomy because of his age and being very frail. cont IV fluids and IV antibiotics in the form of IV Zosyn for broad-spectrum coverage. IR consulted for gall bladder drainage /Hypertension Continue Catapres patch TTS 1 every weekly. We will hold his oral antihypertensives /Hyperkalemia - resolved, likely from diminished excretion from kidneys due to declining function - monitor BMP /HOLLY/ATN could be from dehydratipn cannot r/o underlying CKD nephrology consulted renally dose abx, iv fluid monitor BMP /Hyperlipidemia We will hold the statins for time being and resume at the time of discharge /Gastroesophageal reflux disease Patient on Protonix. /Dvt Px SCD Brief History: This is 86 y/o male presented with c/o RUQ abd pain. CT abd showed distended GB wall with thickened wall and surrounding inflammation. Pt has compromised renal function, enlarged heart on X-ray and due to age he is a high surgical risk. Surgery recommended IR eval for cholecystosotomy tube drainage. Subjective Date of service: 07/09/17 Interval history: Pt seen and examined, denies any pain now Updated son at bedside Pt is NPO for IR guided gall bladder drainage Objective - Constitutional Vitals: Vital Signs - 12hr 07/09/17 07/09/17 07/09/17 01:39 04:05 08:03 Temperature 98.8 F 99.1 F Pulse Rate 95 H 91 H Pulse Rate [ 102 H Right Dorsalis Pedis] Respiratory 16 20 20 Rate Blood Pressure 142/78 126/60 [Left] O2 Sat by Pulse 95 96 94 Oximetry General appearance: Present: no acute distress, other (mal nurished) - EENT Eyes: PERRL, EOM intact ENT: hearing intact, clear oral mucosa Ears: bilateral: normal - Neck Neck: supple, normal ROM - Respiratory Respiratory effort: normal Respiratory: bilateral: CTA - Breasts Breasts: normal - Cardiovascular Rhythm: regular Heart Sounds: Present: S1 & S2. Absent: gallop, rub Extremities: pulses intact, No edema, normal color, Full ROM - Gastrointestinal General gastrointestinal: Present: soft, non-distended, normal bowel sounds, other (RUQ tenderness) - Integumentary Integumentary: clear, warm, dry - Musculoskeletal Musculoskeletal: 1, strength equal bilaterally - Neurologic Neurologic: moves all extremities - Psychiatric Psychiatric: memory intact, appropriate mood/affect, intact judgment & insight - Labs CBC & Chem 7: 07/10/17 03:57 07/10/17 03:57 Labs: Abnormal lab results 07/08/17 07/08/17 07/08/17 Range/Units Unknown Unknown Unknown WBC 20.7 H (4.5-11.0) K/mm3 RBC (3.65-5.03) M/mm3 Hgb 11.3 L (11.8-15.2) gm/dl Hct 34.6 L (35.5-45.6) % Lymph % (Auto) (13.4-35.0) % [place] % (Auto) (0.0-7.3) % Lymph # (1.2-5.4) K/mm3 [place] # (0.0-0.8) K/mm3 Seg Neutrophils % (40.0-70.0) % Seg Neuts % (Manual) 2.0 L (40.0-70.0) % Lymphocytes % (Manual) 9.0 L (13.4-35.0) % Seg Neutrophils # (1.8-7.7) K/mm3 Seg Neutrophils # Man 0.4 L (1.8-7.7) K/mm3 PT 15.5 H (12.2-14.9) Sec. INR 1.17 H (0.87-1.13) APTT 56.2 H (24.2-36.6) Sec. Sodium 134 L (137-145) mmol/L Potassium 5.1 H (3.6-5.0) mmol/L Carbon Dioxide 18 L (22-30) mmol/L BUN 28 H (9-20) mg/dL Creatinine 2.8 H (0.8-1.5) mg/dL Glucose 132 H (75-100) mg/dL Calcium (8.4-10.2) mg/dL AST 44 H (5-40) units/L Alkaline Phosphatase 195 H (35-129) units/L Albumin (3.9-5) g/dL Amylase (27-131) units/L 07/09/17 07/09/17 Range/Units 05:28 05:28 WBC 15.5 H (4.5-11.0) K/mm3 RBC 3.47 L (3.65-5.03) M/mm3 Hgb 10.2 L (11.8-15.2) gm/dl Hct 31.4 L (35.5-45.6) % Lymph % (Auto) 6.2 L (13.4-35.0) % [place] % (Auto) 11.5 H (0.0-7.3) % Lymph # 1.0 L (1.2-5.4) K/mm3 [place] # 1.8 H (0.0-0.8) K/mm3 Seg Neutrophils % 81.5 H (40.0-70.0) % Seg Neuts % (Manual) (40.0-70.0) % Lymphocytes % (Manual) (13.4-35.0) % Seg Neutrophils # 12.6 H (1.8-7.7) K/mm3 Seg Neutrophils # Man (1.8-7.7) K/mm3 PT (12.2-14.9) Sec. INR (0.87-1.13) APTT (24.2-36.6) Sec. Sodium (137-145) mmol/L Potassium (3.6-5.0) mmol/L Carbon Dioxide 16 L (22-30) mmol/L BUN 24 H (9-20) mg/dL Creatinine 2.9 H (0.8-1.5) mg/dL Glucose 122 H (75-100) mg/dL Calcium 7.9 L (8.4-10.2) mg/dL AST (5-40) units/L Alkaline Phosphatase 168 H (35-129) units/L Albumin 3.2 L (3.9-5) g/dL Amylase 17 L (27-131) units/L
[2017-07-09] MEDS ORDERED: NACL 0.9% 500 ML IR ONE (15:29)
[2017-07-09] MEDS ORDERED: NACL 0.9% 250ML 250 ML ONE (15:30)
[2017-07-09] MEDS ORDERED: XYLOCAINE 2% INFILTRATI ONE (15:30)
[2017-07-09] MEDS: VERSED ONE ×2 (16:05→16:17)
[2017-07-09] MEDS: SUBLIMAZE ONE ×2 (16:05→16:15)
--- NOTE | 2017-07-09 16:36 | Operative Report ---
Operative Report Operative Report: Procedure: 1. Ultrasound and fluoroscopy guided placement of a cholecystostomy drainage catheter 2. Fluoroscopic and sonographic evaluation of the gallbladder, cystic duct, and common bile duct Date of Procedure: 07/09/2017 History/Indication: 82-year-old male with acalculous cholecystitis, not a surgical candidate at this time Physician: Rosaline Devine MD Technique/Procedural Details: The patient was placed in the supine position and prepped and draped in the usual sterile fashion. A timeout was performed. Preliminary sonographic evaluation of the right upper quadrant was performed, and permanent images were acquired. Local anesthetic was administered. Under continuous ultrasound guidance, a 21-gauge needle was advanced into the gallbladder via a transperitoneal route. Via micropuncture technique, an 035 wire was advanced, and the needle was exchanged for a 4 [place]raini vertebral catheter. Contrast was injected to confirm placement and evaluate patency of the cystic duct. After serial tissue dilation, the vertebral catheter was exchanged for a 10 [place]raini all purpose drainage catheter. Contrast was again injected to confirm placement. Aspiration was performed. The catheter was connected to a drainage bag and secured to the skin with 2-0 Ethilon suture. A sterile dressing was placed. The patient tolerated the procedure well without immediate complication. Discussion: The gallbladder is moderately distended. The fluid that was aspirated was light green bile. There was no erwin visual evidence of purulence. Approximately 20 mL of fluid was sent to the lab. The cystic duct and common bile duct are patent. There is successful placement of a 10 [place]raini all purpose drainage catheter as a cholecystostomy drain. The newly placed drain fills and decompresses the gallbladder well. Specimen: Bile EBL: <5 cc
--- NOTE | 2017-07-09 18:48 | Progress Note ---
Assessment and Plan Pt status quo. IR eval appreciated. successful CT guided cholecystostomy tube drainage. Abd soft. stable Objective Vital Signs - 12hr 07/09/17 07/09/17 07/09/17 08:03 10:00 13:45 Temperature 99.1 F 98.9 F Pulse Rate 91 H 85 Respiratory 20 16 20 Rate Blood Pressure 126/60 122/68 [Left] O2 Sat by Pulse 94 96 Oximetry 07/09/17 07/09/17 17:02 18:02 Temperature 98.6 F 98.4 F Pulse Rate 82 81 Respiratory 20 20 Rate Blood Pressure 135/65 130/58 [Left] O2 Sat by Pulse 98 98 Oximetry - Labs 07/09/17 05:28 07/09/17 05:28 Diabetes panel 07/09/17 Range/Units 05:28 Sodium 139 (137-145) mmol/L Potassium 4.6 (3.6-5.0) mmol/L Chloride 106.0 (98-107) mmol/L Carbon Dioxide 16 L (22-30) mmol/L BUN 24 H (9-20) mg/dL Creatinine 2.9 H (0.8-1.5) mg/dL Glucose 122 H (75-100) mg/dL Calcium 7.9 L (8.4-10.2) mg/dL AST 16 (5-40) units/L ALT 20 (7-56) units/L Alkaline Phosphatase 168 H (35-129) units/L Total Protein 6.8 (6.3-8.2) g/dL Albumin 3.2 L (3.9-5) g/dL Calcium panel 07/09/17 Range/Units 05:28 Calcium 7.9 L (8.4-10.2) mg/dL Albumin 3.2 L (3.9-5) g/dL Pituitary panel 07/09/17 Range/Units 05:28 Sodium 139 (137-145) mmol/L Potassium 4.6 (3.6-5.0) mmol/L Chloride 106.0 (98-107) mmol/L Carbon Dioxide 16 L (22-30) mmol/L BUN 24 H (9-20) mg/dL Creatinine 2.9 H (0.8-1.5) mg/dL Glucose 122 H (75-100) mg/dL Calcium 7.9 L (8.4-10.2) mg/dL Adrenal panel 07/09/17 Range/Units 05:28 Sodium 139 (137-145) mmol/L Potassium 4.6 (3.6-5.0) mmol/L Chloride 106.0 (98-107) mmol/L Carbon Dioxide 16 L (22-30) mmol/L BUN 24 H (9-20) mg/dL Creatinine 2.9 H (0.8-1.5) mg/dL Glucose 122 H (75-100) mg/dL Calcium 7.9 L (8.4-10.2) mg/dL Total Bilirubin 1.00 (0.1-1.2) mg/dL AST 16 (5-40) units/L ALT 20 (7-56) units/L Alkaline Phosphatase 168 H (35-129) units/L Total Protein 6.8 (6.3-8.2) g/dL Albumin 3.2 L (3.9-5) g/dL
[2017-07-09] MEDS: DILAUDID IV PRN (21:47)
[2017-07-10] MEDS: ZOSYN/NS 4.5GM/100ML 4.5 GM/100 ML VIAL IV SCH ×2 (04:35→18:30)
[2017-07-10 04:56] LABS: Basophils % (Auto) 0.3 % (0.0-1.8); Eosinophils % (Auto) 0.7 % (0.0-4.3); Hematocrit 33.7 % (35.5-45.6); Hemoglobin 11.1 gm/dl (11.8-15.2); Mean Corpuscular HGB Conc 33 % (32-34); Mean Corpuscular Hemoglobin 30 pg (28-32); Mean Corpuscular Volume 91 fl (84-94); Platelet Count 277 K/mm3 (140-440); White Blood Count 10.1 K/mm3 (4.5-11.0)
[2017-07-10 05:06] LABS: INR 1.1 (0.87-1.13)
[2017-07-10 05:25] LABS: Alanine Aminotransferase 20 units/L (7-56); Albumin 3.5 g/dL (3.9-5); Albumin/Globulin Ratio 1.3 %; Alkaline Phosphatase 163 units/L (35-129); Anion Gap 25 mmol/L; BUN/Creatinine Ratio 13; Blood Urea Nitrogen 35 mg/dL (9-20); Calcium 8.1 mg/dL (8.4-10.2); Carbon Dioxide 16 mmol/L (22-30); Chloride 108.4 mmol/L (98-107); Glucose 117 mg/dL (75-100); Potassium 5.7 mmol/L (3.6-5.0); Sodium 144 mmol/L (137-145); Total Protein 6.3 g/dL (6.3-8.2)
[2017-07-10 05:31] LABS: Bilirubin,Direct < 0.2 mg/dL (0-0.2); Bilirubin,Indirect 0.1 mg/dL
[2017-07-10] MEDS ORDERED: KIONEX PO PRN (08:00)
--- NOTE | 2017-07-10 08:13 | Progress Note ---
Assessment and Plan Pt status quo. cannot properly communicate with pt to see if abd pain persists. Abd exam - status quo lower wbc noted elevated K renal eval for insuficiency can atttempt cl liq once we can confirm that pt not experiencing any abd pain Selected Entries 07/10/17 05:00 Temperature 97.8 F Pulse Rate 89 Respiratory 20 Rate Blood Pressure 140/71 [Left] Laboratory Tests 07/09/17 07/10/17 07/10/17 05:28 03:57 03:57 WBC 15.5 H 10.1 Hgb 11.1 L Hct 33.7 L Sodium 144 Potassium 5.7 H D Chloride 108.4 H Carbon Dioxide 16 L BUN 35 H Creatinine 2.6 H Objective Vital Signs - 12hr 07/09/17 07/09/17 07/09/17 21:47 22:00 22:17 Temperature 98.0 F Pulse Rate 94 H Respiratory 20 18 20 Rate Respiratory 20 Rate [Right Abdomen] Blood Pressure 139/83 [Left] O2 Sat by Pulse 96 Oximetry 07/10/17 05:00 Temperature 97.8 F Pulse Rate 89 Respiratory 20 Rate Respiratory Rate [Right Abdomen] Blood Pressure 140/71 [Left] O2 Sat by Pulse 98 Oximetry - Labs 07/10/17 03:57 07/10/17 03:57 Diabetes panel 07/10/17 Range/Units 03:57 Sodium 144 (137-145) mmol/L Potassium 5.7 H D (3.6-5.0) mmol/L Chloride 108.4 H (98-107) mmol/L Carbon Dioxide 16 L (22-30) mmol/L BUN 35 H (9-20) mg/dL Creatinine 2.6 H (0.8-1.5) mg/dL Glucose 117 H (75-100) mg/dL Calcium 8.1 L (8.4-10.2) mg/dL AST 17 (5-40) units/L ALT 20 (7-56) units/L Alkaline Phosphatase 163 H (35-129) units/L Total Protein 6.3 (6.3-8.2) g/dL Albumin 3.5 L (3.9-5) g/dL Calcium panel 07/10/17 Range/Units 03:57 Calcium 8.1 L (8.4-10.2) mg/dL Albumin 3.5 L (3.9-5) g/dL Pituitary panel 07/10/17 Range/Units 03:57 Sodium 144 (137-145) mmol/L Potassium 5.7 H D (3.6-5.0) mmol/L Chloride 108.4 H (98-107) mmol/L Carbon Dioxide 16 L (22-30) mmol/L BUN 35 H (9-20) mg/dL Creatinine 2.6 H (0.8-1.5) mg/dL Glucose 117 H (75-100) mg/dL Calcium 8.1 L (8.4-10.2) mg/dL Adrenal panel 07/10/17 Range/Units 03:57 Sodium 144 (137-145) mmol/L Potassium 5.7 H D (3.6-5.0) mmol/L Chloride 108.4 H (98-107) mmol/L Carbon Dioxide 16 L (22-30) mmol/L BUN 35 H (9-20) mg/dL Creatinine 2.6 H (0.8-1.5) mg/dL Glucose 117 H (75-100) mg/dL Calcium 8.1 L (8.4-10.2) mg/dL Total Bilirubin 0.30 (0.1-1.2) mg/dL AST 17 (5-40) units/L ALT 20 (7-56) units/L Alkaline Phosphatase 163 H (35-129) units/L Total Protein 6.3 (6.3-8.2) g/dL Albumin 3.5 L (3.9-5) g/dL
[2017-07-10] MEDS: DILAUDID IV PRN ×2 (08:15→20:01)
--- NOTE | 2017-07-10 08:58 | Consultation ---
History of Present Illness - Reason for Consult Consult date: 07/10/17 acute renal failure, hyperkalemia - History of Present Illness 86-year-old male here with complaints of 3 days of abdominal pain. Patient is very tender in his right upper quadrant. He's been having some fever and nausea but no vomiting. He feels fairly uncomfortable. He is [place] speaking and I'm using his son as an rotary saw operator. He's had no blood in his stool but has felt somewhat constipated. MD Complaint: abdominal pain -: Gradual, days(s) (3) Location: RUQ Radiation: none Migration to: no migration Severity: moderate Consistency: constant, colicky Improves With: nothing Worsens With: nothing Associated Symptoms: nausea, fever. denies: vomiting, diarrhea ROS: Stated complaint: RIGHT UPPER QUAD PAIN Other details as noted in HPI Comment: All other systems reviewed and negative Constitutional: denies: chills, fever ENT: denies: ear pain, throat pain Respiratory: denies: cough, shortness of breath, wheezing Cardiovascular: denies: chest pain, palpitations Endocrine: no symptoms reported Gastrointestinal: abdominal pain, nausea. denies: diarrhea Genitourinary: denies: urgency, dysuria Musculoskeletal: denies: back pain, joint swelling, arthralgia Skin: denies: rash, lesions Neurological: denies: headache, weakness, paresthesias Psychiatric: denies: anxiety, depression Hematological/Lymphatic: denies: easy bleeding, easy bruising - Past Medical History Previous Medical History?: Yes Hx Hypertension: Yes - Family History Family history: no significant - Social History Smoking Status: Never Smoker Substance Use Type: None Past History Past Medical History: GERD, hypertension, hyperlipidemia Past Surgical History: No surgical history Social history: no significant social history, lives with family Family history: hypertension Medications and Allergies Allergies Allergy/AdvReac Type Severity Reaction Status Date / Time No Known Allergies Allergy Unverified 07/08/17 14:16 Home Medications Medication Instructions Recorded Confirmed Last Taken Type Acetaminophen [Shake That Ache] 500 mg PO Q6H 07/08/17 07/08/17 07/08/17 History AtorvaSTATin [Lipitor] 40 mg PO QHS 07/08/17 07/08/17 07/07/17 History Gabapentin [Neurontin] 100 mg PO Q8HR 07/08/17 07/08/17 07/07/17 History Ranitidine HCl [Acid Dandy Operator] 150 mg PO PRN 07/08/17 07/08/17 07/08/17 History amLODIPine [Norvasc] 10 mg PO DAILY 07/08/17 07/08/17 07/07/17 History Active Meds: Active Medications Acetaminophen (Tylenol) 650 mg PO Q4H PRN PRN Reason: Pain MILD(1-3)/Fever >100.5/MOTT Bisacodyl (Dulcolax) 10 mg [place] QDAY PRN PRN Reason: Constipation unrelieved by MOM Clonidine HCl (Catapres-Tts Patch) 0.1 mg TD Tu ON LICENSE OF [facility] Last Admin: 07/08/17 22:11 Dose: 0.1 mg Famotidine (Pepcid) 10 mg IV BID ON LICENSE OF [facility] Last Admin: 07/09/17 21:47 Dose: 10 mg Hydromorphone HCl (Dilaudid) 0.5 mg IV Q3H PRN PRN Reason: Pain , Severe (7-10) Last Admin: 07/10/17 08:15 Dose: 0.5 mg Piperacillin Sod/Tazobactam Sod (Zosyn/Ns 4.5gm/100ml) 4.5 gm in 100 mls @ 200 mls/hr IV Q12H MAXIMILIANO PRN Reason: Protocol Last Admin: 07/10/17 04:35 Dose: 200 mls/hr Sodium Bicarbonate 150 meq/ (Dextrose) 1,150 mls @ 100 mls/hr IV DIRECT MAXIMILIANO Ondansetron HCl (Zofran) 4 mg IV Q8H PRN PRN Reason: N/V unrelieved by Reglan Sodium Polystyrene Sulfonate (Kionex) 15 gm PO Q6HR PRN PRN Reason: Hyperkalemia Exam - Vital Signs Vital signs: Vital Signs Temp Pulse Resp BP Pulse Ox 98.4 F 95 H 16 112/66 96 07/08/17 12:48 07/08/17 12:48 07/08/17 12:48 07/08/17 12:48 07/08/17 12:48 - Physical Exam Narrative exam: General Limitations: Language Barrier General appearance: alert, in no apparent distress - Head Head exam: Present: atraumatic, normocephalic - Eye Eye exam: Present: normal appearance. Absent: scleral icterus, conjunctival injection - ENT ENT exam: Present: mucous membranes moist - Neck Neck exam: Present: normal inspection. Absent: lymphadenopathy, thyromegaly - Respiratory Respiratory exam: Present: normal lung sounds bilaterally. Absent: respiratory distress - Cardiovascular Cardiovascular Exam: Present: regular rate, normal rhythm. Absent: systolic murmur, diastolic murmur, rubs, gallop - GI/Abdominal GI/Abdominal exam: Present: soft, distended, tenderness, guarding, normal bowel sounds, hypoactive bowel sounds. Absent: rebound - Rectal Rectal exam: Present: deferred - Extremities Exam Extremities exam: Present: normal inspection - Back Exam Back exam: Present: normal inspection - Neurological Exam Neurological exam: Present: alert, oriented X3 - Psychiatric Psychiatric exam: Present: normal affect, normal mood - Skin Skin exam: Present: warm, dry, intact, normal Results - Lab Results 07/10/17 03:57 07/10/17 03:57 Most recent lab results Calcium 8.1 mg/dL (8.4-10.2) L 07/10/17 03:57 Assessment and Plan Impression: * HOLLY * Hyperkalemia * Metabolic Acidosis * Abdominal Pain * Cholelithiasis Plan: * treat k medically, kayexlate may be risk with gi pathology, ins 50 and bicarb given * place urban cath * add bicarbonate gtt * keep MAP >65 * strict i/os * avoid nephrotoxins * daily lytes * abd ct noted, no hydronephrosis * holly likely due to hypoperfusion, high risk of atn * iv abx per primary team
[2017-07-10] MEDS ORDERED: D50W (25GM) Syringe IV NR (09:30)
[2017-07-10] MEDS ORDERED: NACL P/F VIAL (10 ML) 10 ML ONE (09:37)
[2017-07-10] MEDS ORDERED: SODIUM BICARBONATE 150 MEQ in D5W 1,000 ML IV SCH (09:45)
[2017-07-10] MEDS ORDERED: CALCIUM GLUCONATE 1,000 MG in NACL 0.9% 100 ML IV ONE (10:00)
[2017-07-10] MEDS: PEPCID IV SCH ×2 (10:00→21:28)
--- NOTE | 2017-07-10 11:17 | Query- Renal Failure ---
Carlos Cabrera Date:__07/10/2017 Senior Gamemaster/CDS:___Molly Phone#:___[phone] Exercise your independent professional judgment when responding to query. Questions asked do not imply a particular answer is desired or expected. We greatly appreciate your clarification on this issue. Clinical Documentation States: 86 Year old male was admitted on 07/08/2017 with decreased appetite and mild RUQ pain with leukocytosis. The Nephrology consult note states "Acute Kidney Injury." Clinical Findings Show: 07/08 07/09 07/10 Creatinine 2.5 2.9 2.6 Please clarify if you mean: Acute Renal Failure with or due to: [ ] Tubular Necrosis [ ] Medullary Necrosis [ ] Vasomotor Nephropathy [ ] Shock Kidney [ ] Tubular Nephrosis [ ] Renal Tubular Stasis [ ] Cortical Necrosis [ ] Acute Renal Failure (unspecified) [ ] Lower Tubular Nephrosis [ ] Other: [ ] Not Applicable Present on Admission: [ ] Yes (Y) [ ] Clinically undeterminable (W) [ ] No (N) Please also document response in your Progress Notes and/or Discharge Summary and indicate if the condition was present on admission. [email or web address]
--- NOTE | 2017-07-10 18:24 | Progress Note ---
Assessment and Plan /Sepsis Secondary to acute cholecystitis. Patient initiated on IV fluids and IV Zosyn. We'll trend WBC, will follow culture from the gallbladder drainage /Acute cholecystitis Surgery was consulted. Patient not to get cholecystostomy because of his age, being very frail and compromised renal function. cont IV fluids and IV antibiotics in the form of IV Zosyn for broad-spectrum coverage. IR consulted for gall bladder drainage, status post cholecystectomy catheter drainage on 07/09/17 /Hypertension Continue Catapres patch TTS 1 every weekly. We will cont to hold his oral antihypertensives /Hyperkalemia - likely from diminished excretion from kidneys due to declining function - monitor BMP, will give Kayexalate /HOLLY/ATN could be from dehydratipn Abdomen ultrasound showed underlying CKD with medical renal disease nephrology consulted renally dose abx, iv fluid Continue to monitor BMP /Hyperlipidemia We will hold the statins for time being and resume at the time of discharge /Gastroesophageal reflux disease Patient on Protonix. /Dvt Px SCD Brief History: This is 86 y/o male presented with c/o RUQ abd pain. CT abd showed distended GB wall with thickened wall and surrounding inflammation. Pt has compromised renal function, enlarged heart on X-ray and due to age he is a high surgical risk. Surgery recommended IR eval for cholecystosotomy tube drainage. Radiological data: Abdominal pelvis CT: Enlarged gallbladder with marked thickening of the gallbladder wall and extensive pericholecystic inflammatory changes echo close cholecystitis was suspected. Ultrasound of abdomen: Gallbladder sludge without evidence of medical renal disease. Hepatobiliary scan: Nonvisualization of the gallbladder consistent with acute cholecystitis. Active meds: Generic Name Dose Route Start Last Admin Trade Name Freq PRN Reason Stop Dose Admin Acetaminophen 650 mg 07/08/17 20:51 Tylenol PO Q4H PRN Pain MILD(1-3)/Fever >100.5/MOTT Bisacodyl 10 mg 07/08/17 20:51 Dulcolax DE QDAY PRN Constipation unrelieved by MOM Clonidine HCl 0.1 mg 07/08/17 22:00 07/08/17 22:11 Catapres-Tts Patch TD 0.1 mg Tu MAXIMILIANO Administration Famotidine 10 mg 07/08/17 22:00 07/10/17 21:28 Pepcid IV 10 mg BID MAXIMILIANO Administration Hydromorphone HCl 0.5 mg 07/08/17 20:56 07/10/17 20:01 Dilaudid IV 0.5 mg Q3H PRN Administration Pain , Severe (7-10) Piperacillin Sod/Tazobactam Sod 4.5 gm in 100 mls @ 200 mls/hr 07/09/17 05:00 07/11/17 06:22 Zosyn/Ns 4.5gm/100ml IV 200 mls/hr Q12H MAXIMILIANO Administration Protocol Sodium Bicarbonate 150 meq/ 1,150 mls @ 100 mls/hr 07/10/17 09:45 07/10/17 10 :17 Dextrose IV 100 mls/hr DIRECT MAXIMILIANO Administration Ondansetron HCl 4 mg 07/08/17 20:51 Zofran IV Q8H PRN N/V unrelieved by Reglan Sodium Polystyrene Sulfonate 15 gm 07/10/17 08:00 Kionex PO Q6HR PRN Hyperkalemia Subjective Date of service: 07/10/17 Interval history: Pt seen and examined, denies any pain now s/p IR guided gall bladder drainage on 07/09/17 tolerated procedure well Objective - Exam Narrative Exam: General appearance: Present: no acute distress - EENT Eyes: PERRL, EOM intact ENT: hearing intact, clear oral mucosa Ears: bilateral: normal - Neck Neck: supple, normal ROM - Respiratory Respiratory effort: normal Respiratory: bilateral: CTA - Breasts Breasts: normal - Cardiovascular Rhythm: regular Heart Sounds: Present: S1 & S2. Absent: gallop, rub Extremities: pulses intact, No edema, normal color, Full ROM - Gastrointestinal General gastrointestinal: Present: soft, non-distended, normal bowel sounds, other (right upper quadrant cholecystectomy drainage catheter on place) - Integumentary Integumentary: clear, warm, dry - Musculoskeletal Musculoskeletal: 1, strength equal bilaterally - Neurologic Neurologic: moves all extremities - Psychiatric Psychiatric: memory intact, appropriate mood/affect, intact judgment & insight - Constitutional Vitals: Vital Signs - 12hr 07/10/17 07/10/17 07/10/17 09:00 10:00 13:15 Temperature 97.8 F 97.8 F Pulse Rate 90 85 Respiratory 18 18 20 Rate Blood Pressure 125/64 148/72 [Left] O2 Sat by Pulse 97 100 97 Oximetry 07/10/17 15:39 Temperature 98.3 F Pulse Rate 80 Respiratory 19 Rate Blood Pressure 128/73 [Left] O2 Sat by Pulse 98 Oximetry - Labs CBC & Chem 7: 07/11/17 04:27 07/11/17 04:27 Labs: Abnormal lab results 07/10/17 07/10/17 07/10/17 Range/Units 03:57 03:57 09:48 Hgb 11.1 L (11.8-15.2) gm/dl Hct 33.7 L (35.5-45.6) % Lymph % (Auto) 7.8 L (13.4-35.0) % [place] % (Auto) 10.6 H (0.0-7.3) % Lymph # 0.8 L (1.2-5.4) K/mm3 [place] # 1.1 H (0.0-0.8) K/mm3 Seg Neutrophils % 80.6 H (40.0-70.0) % Seg Neutrophils # 8.1 H (1.8-7.7) K/mm3 Potassium 5.7 H D (3.6-5.0) mmol/L Chloride 108.4 H (98-107) mmol/L Carbon Dioxide 16 L (22-30) mmol/L BUN 35 H (9-20) mg/dL Creatinine 2.6 H (0.8-1.5) mg/dL Glucose 117 H (75-100) mg/dL POC Glucose 132 H (70-105) Calcium 8.1 L (8.4-10.2) mg/dL Alkaline Phosphatase 163 H (35-129) units/L Albumin 3.5 L (3.9-5) g/dL 07/10/17 07/10/17 Range/Units 10:52 16:03 Hgb (11.8-15.2) gm/dl Hct (35.5-45.6) % Lymph % (Auto) (13.4-35.0) % [place] % (Auto) (0.0-7.3) % Lymph # (1.2-5.4) K/mm3 [place] # (0.0-0.8) K/mm3 Seg Neutrophils % (40.0-70.0) % Seg Neutrophils # (1.8-7.7) K/mm3 Potassium (3.6-5.0) mmol/L Chloride (98-107) mmol/L Carbon Dioxide (22-30) mmol/L BUN (9-20) mg/dL Creatinine (0.8-1.5) mg/dL Glucose (75-100) mg/dL POC Glucose 286 H 157 H (70-105) Calcium (8.4-10.2) mg/dL Alkaline Phosphatase (35-129) units/L Albumin (3.9-5) g/dL
[2017-07-10] MEDS ORDERED: NACL 0.9% 500 ML 500 ML ONE (18:39)
[2017-07-11 04:46] LABS: Basophils % (Auto) 0.1 % (0.0-1.8); Eosinophils % (Auto) 2.7 % (0.0-4.3); Hematocrit 31.5 % (35.5-45.6); Hemoglobin 10.9 gm/dl (11.8-15.2); Mean Corpuscular HGB Conc 35 % (32-34); Mean Corpuscular Hemoglobin 31 pg (28-32); Mean Corpuscular Volume 88 fl (84-94); Platelet Count 261 K/mm3 (140-440); Red Blood Count 3.57 M/mm3 (3.65-5.03); White Blood Count 8.4 K/mm3 (4.5-11.0)
[2017-07-11 05:03] LABS: Calcium 8.3 mg/dL (8.4-10.2); Chloride 105.3 mmol/L (98-107); Potassium 4.1 mmol/L (3.6-5.0)
[2017-07-11] MEDS: ZOSYN/NS 4.5GM/100ML 4.5 GM/100 ML VIAL IV SCH ×2 (06:22→17:51)
--- NOTE | 2017-07-11 08:12 | Progress Note ---
Assessment and Plan Pt looks much better. Appears comfortable, no apparent pain. Abd soft, non tender stable attempt cl liq diet Selected Entries 07/10/17 22:34 Temperature 98.5 F Pulse Rate 83 Respiratory 18 Rate Blood Pressure 158/72 [Left] Laboratory Tests 07/11/17 07/11/17 04:27 04:27 WBC 8.4 Hgb 10.9 L Hct 31.5 L Sodium 144 Potassium 4.1 D Chloride 105.3 Carbon Dioxide 24 D Anion Gap 19 BUN 25 H Creatinine 2.2 H Objective Vital Signs - 12hr 07/10/17 22:34 Temperature 98.5 F Pulse Rate 83 Respiratory 18 Rate Blood Pressure 158/72 [Left] O2 Sat by Pulse 97 Oximetry - Labs 07/11/17 04:27 07/11/17 04:27 Diabetes panel 07/11/17 Range/Units 04:27 Sodium 144 (137-145) mmol/L Potassium 4.1 D (3.6-5.0) mmol/L Chloride 105.3 (98-107) mmol/L Carbon Dioxide 24 D (22-30) mmol/L BUN 25 H (9-20) mg/dL Creatinine 2.2 H (0.8-1.5) mg/dL Glucose 115 H (75-100) mg/dL Calcium 8.3 L (8.4-10.2) mg/dL Calcium panel 07/11/17 Range/Units 04:27 Calcium 8.3 L (8.4-10.2) mg/dL Pituitary panel 07/11/17 Range/Units 04:27 Sodium 144 (137-145) mmol/L Potassium 4.1 D (3.6-5.0) mmol/L Chloride 105.3 (98-107) mmol/L Carbon Dioxide 24 D (22-30) mmol/L BUN 25 H (9-20) mg/dL Creatinine 2.2 H (0.8-1.5) mg/dL Glucose 115 H (75-100) mg/dL Calcium 8.3 L (8.4-10.2) mg/dL Adrenal panel 07/11/17 Range/Units 04:27 Sodium 144 (137-145) mmol/L Potassium 4.1 D (3.6-5.0) mmol/L Chloride 105.3 (98-107) mmol/L Carbon Dioxide 24 D (22-30) mmol/L BUN 25 H (9-20) mg/dL Creatinine 2.2 H (0.8-1.5) mg/dL Glucose 115 H (75-100) mg/dL Calcium 8.3 L (8.4-10.2) mg/dL
[2017-07-11] MEDS: PEPCID IV SCH ×2 (11:05→22:35)
[2017-07-11] MEDS: DILAUDID IV PRN ×3 (11:15→23:57)
--- NOTE | 2017-07-11 11:58 | Progress Note ---
Assessment and Plan Impression: * HOLLY * Hyperkalemia * Metabolic Acidosis * Abdominal Pain * Cholelithiasis Plan: * His hyperkalemia has been corrected with medical treatment * Acidosis is also better. Shall discontinue his bicarbonate drip * Serum sodium is now high normal. Change IV fluid to half-normal saline * Keep MAP >65 * strict i/os * avoid nephrotoxins * daily lytes * abd ct noted, no hydronephrosis * holly likely due to hypoperfusion, high risk of atn * iv abx per primary team Subjective Date of service: 07/11/17 Interval history: Patient is comfortable this morning. He has been started on clear liquid diet. No acute events per nursing staff Objective - Vital Signs Vital signs: Vital Signs - 12hr 07/11/17 08:45 Temperature 98.3 F Pulse Rate 86 Respiratory 18 Rate Blood Pressure 153/85 [Left] O2 Sat by Pulse 96 Oximetry - General Appearance General appearance: well-developed, well-nourished, appears stated age EENT: PERRL, mucous membranes moist Neck: no JVD, no thyromegaly, no carotid bruit, supple Respiratory: Present: Clear to Ascultation Cardiology: regular, normal heart rate, S1S2, no murmurs Gastrointestinal: normal, normoactive bowel sounds, other (drain noted in his right upper quadrant) Integumentary: no rash, other - Lab 07/11/17 04:27 07/11/17 04:27 Most recent lab results Calcium 8.3 mg/dL (8.4-10.2) L 07/11/17 04:27
--- NOTE | 2017-07-11 13:07 | XRay Report ---
Right knee 2 views: History: Pain and edema. Findings: Minimal narrowing of the medial and patellofemoral compartment of knee joint with mild degenerative changes. Spur anterosuperior patella. No fracture. Impression: Degenerative changes right knee. No acute fracture.
[2017-07-11] MEDS: NACL 0.45% 1000 ML 1,000 ML IV SCH (14:13)
--- NOTE | 2017-07-11 17:15 | Progress Note ---
Assessment and Plan /Acute cholecystitis Surgery was consulted. Patient not to get cholecystostomy because of his age, being very frail and compromised renal function. cont IV fluids and IV antibiotics in the form of IV Zosyn for broad-spectrum coverage. IR consulted for gall bladder drainage, status post cholecystectomy catheter drainage on 07/09/17 /Sepsis Secondary to acute cholecystitis. Patient initiated on IV fluids and IV Zosyn. We'll trend WBC, will follow culture from the gallbladder drainage /Hypertension Continue Catapres patch TTS 1 every weekly. We will cont to hold his oral antihypertensives /Hyperkalemia - likely from diminished excretion from kidneys due to declining function - monitor BMP, will give Kayexalate /HOLLY/ATN could be from dehydratipn Abdomen ultrasound showed underlying CKD with medical renal disease nephrology consulted renally dose abx, iv fluid Continue to monitor BMP /Hyperlipidemia We will hold the statins for time being and resume at the time of discharge /Gastroesophageal reflux disease Patient on Protonix. /Dvt Px SCD Brief History: This is 86 y/o male presented with c/o RUQ abd pain. CT abd showed distended GB wall with thickened wall and surrounding inflammation. Pt has compromised renal function, enlarged heart on X-ray and due to age he is a high surgical risk. Surgery recommended IR eval for cholecystosotomy tube drainage. Radiological data: Abdominal pelvis CT: Enlarged gallbladder with marked thickening of the gallbladder wall and extensive pericholecystic inflammatory changes echo close cholecystitis was suspected. Ultrasound of abdomen: Gallbladder sludge without evidence of medical renal disease. Hepatobiliary scan: Nonvisualization of the gallbladder consistent with acute cholecystitis. Active meds: Generic Name Dose Route Start Last Admin Trade Name Freq PRN Reason Stop Dose Admin Acetaminophen 650 mg 07/08/17 20:51 Tylenol PO Q4H PRN Pain MILD(1-3)/Fever >100.5/MOTT Bisacodyl 10 mg 07/08/17 20:51 Dulcolax [place] QDAY PRN Constipation unrelieved by MOM Clonidine HCl 0.1 mg 07/08/17 22:00 07/08/17 22:11 Catapres-Tts Patch TD 0.1 mg Tu MAXIMILIANO Administration Famotidine 10 mg 07/08/17 22:00 07/10/17 21:28 Pepcid IV 10 mg BID MAXIMILIANO Administration Hydromorphone HCl 0.5 mg 07/08/17 20:56 07/10/17 20:01 Dilaudid IV 0.5 mg Q3H PRN Administration Pain , Severe (7-10) Piperacillin Sod/Tazobactam Sod 4.5 gm in 100 mls @ 200 mls/hr 07/09/17 05:00 07/11/17 06:22 Zosyn/Ns 4.5gm/100ml IV 200 mls/hr Q12H MAXIMILIANO Administration Protocol Sodium Bicarbonate 150 meq/ 1,150 mls @ 100 mls/hr 07/10/17 09:45 07/10/17 10 :17 Dextrose IV 100 mls/hr DIRECT MAXIMILIANO Administration Ondansetron HCl 4 mg 07/08/17 20:51 Zofran IV Q8H PRN N/V unrelieved by Reglan Sodium Polystyrene Sulfonate 15 gm 07/10/17 08:00 Kionex PO Q6HR PRN Hyperkalemia Subjective Date of service: 07/11/17 Interval history: Pt seen and examined, denies any pain now s/p IR guided gall bladder drainage on 07/09/17 tolerated procedure well, started on clear liquid diet today ER note suggested pt might have suicidal risk, placed with sitter Did not show any suicidal risk so far, d/c sitter today Objective - Exam Narrative Exam: General appearance: Present: no acute distress - EENT Eyes: PERRL, EOM intact ENT: hearing intact, clear oral mucosa Ears: bilateral: normal - Neck Neck: supple, normal ROM - Respiratory Respiratory effort: normal Respiratory: bilateral: CTA - Breasts Breasts: normal - Cardiovascular Rhythm: regular Heart Sounds: Present: S1 & S2. Absent: gallop, rub Extremities: pulses intact, No edema, normal color, Full ROM - Gastrointestinal General gastrointestinal: Present: soft, non-distended, normal bowel sounds, other (right upper quadrant cholecystectomy drainage catheter on place) - Integumentary Integumentary: clear, warm, dry - Musculoskeletal Musculoskeletal: 1, strength equal bilaterally - Neurologic Neurologic: moves all extremities - Psychiatric Psychiatric: memory intact, appropriate mood/affect, intact judgment & insight - Constitutional Vitals: Vital Signs - 12hr 07/11/17 07/11/17 08:45 13:48 Temperature 98.3 F 98 F Pulse Rate 86 84 Respiratory 18 18 Rate Blood Pressure 153/85 164/79 [Left] O2 Sat by Pulse 96 97 Oximetry - Labs CBC & Chem 7: 07/12/17 04:10 07/12/17 04:10 Labs: Abnormal lab results 07/11/17 07/11/17 Range/Units 04:27 04:27 RBC 3.57 L (3.65-5.03) M/mm3 Hgb 10.9 L (11.8-15.2) gm/dl Hct 31.5 L (35.5-45.6) % MCHC 35 H (32-34) % Lymph % (Auto) 9.5 L (13.4-35.0) % [place] % (Auto) 10.4 H (0.0-7.3) % Lymph # 0.8 L (1.2-5.4) K/mm3 [place] # 0.9 H (0.0-0.8) K/mm3 Seg Neutrophils % 77.3 H (40.0-70.0) % BUN 25 H (9-20) mg/dL Creatinine 2.2 H (0.8-1.5) mg/dL Glucose 115 H (75-100) mg/dL Calcium 8.3 L (8.4-10.2) mg/dL
[2017-07-12] MEDS: ZOSYN/NS 4.5GM/100ML 4.5 GM/100 ML VIAL IV SCH ×2 (04:51→17:16)
[2017-07-12] MEDS: NACL 0.45% 1000 ML 1,000 ML IV SCH ×2 (04:51→17:16)
[2017-07-12 05:11] LABS: Basophils % (Auto) 0.4 % (0.0-1.8); Eosinophils % (Auto) 2.9 % (0.0-4.3); Hemoglobin 11.7 gm/dl (11.8-15.2); Mean Corpuscular HGB Conc 34 % (32-34); Mean Corpuscular Hemoglobin 30 pg (28-32); Mean Corpuscular Volume 90 fl (84-94); Platelet Count 283 K/mm3 (140-440); Red Blood Count 3.89 M/mm3 (3.65-5.03); Red Cell Distribution Width 14.4 % (13.2-15.2); White Blood Count 7.6 K/mm3 (4.5-11.0)
[2017-07-12 05:42] LABS: Calcium 8.1 mg/dL (8.4-10.2); Chloride 102.1 mmol/L (98-107)
[2017-07-12] MEDS: PEPCID IV SCH ×2 (09:09→21:01)
--- NOTE | 2017-07-12 11:14 | Progress Note ---
Assessment and Plan Pt looks and feels well. no apparent compl. mohsen cl liq Abd soft, non tender wbc down to 7.6 surgically stable advance to low fat full liq diet Selected Entries 07/12/17 08:00 Temperature 98.7 F Pulse Rate 88 Respiratory 18 Rate Blood Pressure 165/86 [Left] Laboratory Tests 07/11/17 07/12/17 04:27 04:10 WBC 8.4 7.6 Hgb 10.9 L 11.7 L Hct 31.5 L 35.0 L Objective Vital Signs - 12hr 07/12/17 07/12/17 07/12/17 00:00 08:00 10:00 Temperature 98.1 F 98.7 F Pulse Rate 80 88 Pulse Rate [ 88 Right Radial] Respiratory 18 18 Rate Blood Pressure 165/86 [Left] O2 Sat by Pulse 97 97 Oximetry - Labs 07/12/17 04:10 07/12/17 04:10 Diabetes panel 07/12/17 Range/Units 04:10 Sodium 140 (137-145) mmol/L Potassium 4.0 (3.6-5.0) mmol/L Chloride 102.1 (98-107) mmol/L Carbon Dioxide 21 L (22-30) mmol/L BUN 18 (9-20) mg/dL Creatinine 2.0 H (0.8-1.5) mg/dL Glucose 123 H (75-100) mg/dL Calcium 8.1 L (8.4-10.2) mg/dL Calcium panel 07/12/17 Range/Units 04:10 Calcium 8.1 L (8.4-10.2) mg/dL Pituitary panel 07/12/17 Range/Units 04:10 Sodium 140 (137-145) mmol/L Potassium 4.0 (3.6-5.0) mmol/L Chloride 102.1 (98-107) mmol/L Carbon Dioxide 21 L (22-30) mmol/L BUN 18 (9-20) mg/dL Creatinine 2.0 H (0.8-1.5) mg/dL Glucose 123 H (75-100) mg/dL Calcium 8.1 L (8.4-10.2) mg/dL Adrenal panel 07/12/17 Range/Units 04:10 Sodium 140 (137-145) mmol/L Potassium 4.0 (3.6-5.0) mmol/L Chloride 102.1 (98-107) mmol/L Carbon Dioxide 21 L (22-30) mmol/L BUN 18 (9-20) mg/dL Creatinine 2.0 H (0.8-1.5) mg/dL Glucose 123 H (75-100) mg/dL Calcium 8.1 L (8.4-10.2) mg/dL
--- NOTE | 2017-07-12 11:17 | Progress Note ---
Assessment and Plan Impression: * HOLLY * Hyperkalemia * Metabolic Acidosis * Abdominal Pain * Cholelithiasis Plan: * His hyperkalemia has been corrected with medical treatment * Acidosis is also better. Currently off bicarbonate drip * Serum sodium is better with hydration * Keep MAP >65 * strict i/os * avoid nephrotoxins * daily lytes * abd ct noted, no hydronephrosis * holly likely due to hypoperfusion, high risk of atn * iv abx per primary team Subjective Date of service: 07/12/17 Interval history: Patient is comfortable this morning. No acute events per nursing staff Objective - Vital Signs Vital signs: Vital Signs - 12hr 07/12/17 07/12/17 07/12/17 00:00 08:00 10:00 Temperature 98.1 F 98.7 F Pulse Rate 80 88 Pulse Rate [ 88 Right Radial] Respiratory 18 18 Rate Blood Pressure 165/86 [Left] O2 Sat by Pulse 97 97 Oximetry - General Appearance General appearance: well-developed, well-nourished, appears stated age EENT: PERRL, mucous membranes moist Neck: no JVD, no thyromegaly, no carotid bruit, supple Respiratory: Present: Clear to Ascultation Cardiology: regular, normal heart rate, S1S2, no murmurs Gastrointestinal: normal, normoactive bowel sounds, other (Drain noted in his right upper quadrant) Integumentary: no rash, other (no edema) - Lab 07/12/17 04:10 07/12/17 04:10 Most recent lab results Calcium 8.1 mg/dL (8.4-10.2) L 07/12/17 04:10
--- NOTE | 2017-07-12 17:43 | Progress Note ---
Assessment and Plan /Sepsis Secondary to acute cholecystitis. Patient initiated on IV fluids and IV Zosyn. We'll trend WBC, culture from the gallbladder drainage growing growing S. aureus, will follow sensitivity /Acute cholecystitis Surgery was consulted. Patient not to get cholecystostomy because of his age, being very frail and compromised renal function. cont IV fluids and IV antibiotics in the form of IV Zosyn for broad-spectrum coverage. IR consulted for gall bladder drainage, status post cholecystectomy catheter drainage on 07/09/17 /Hypertension Continue Catapres patch TTS 1 every weekly. We resume his oral antihypertensives /Hyperkalemia - likely from diminished excretion from kidneys due to declining function - monitor BMP, s/p Kayexalate, resolved /HOLLY/ATN could be from dehydratipn Abdomen ultrasound showed underlying CKD with medical renal disease nephrology consulted renally dose abx, iv fluid Continue to monitor BMP /Hyperlipidemia We will hold the statins for time being and resume at the time of discharge /Gastroesophageal reflux disease Patient on Protonix. /Dvt Px SCD Brief History: This is 86 y/o male presented with c/o RUQ abd pain. CT abd showed distended GB wall with thickened wall and surrounding inflammation. Pt has compromised renal function, enlarged heart on X-ray and due to age he is a high surgical risk. Surgery recommended IR eval for cholecystosotomy tube drainage. Radiological data: Abdominal pelvis CT: Enlarged gallbladder with marked thickening of the gallbladder wall and extensive pericholecystic inflammatory changes echo close cholecystitis was suspected. Ultrasound of abdomen: Gallbladder sludge without evidence of medical renal disease. Hepatobiliary scan: Nonvisualization of the gallbladder consistent with acute cholecystitis. Active meds: Generic Name Dose Route Start Last Admin Trade Name Freq PRN Reason Stop Dose Admin Acetaminophen 650 mg 07/08/17 20:51 Tylenol PO Q4H PRN Pain MILD(1-3)/Fever >100.5/MOTT Bisacodyl 10 mg 07/08/17 20:51 Dulcolax [place] QDAY PRN Constipation unrelieved by MOM Clonidine HCl 0.1 mg 07/08/17 22:00 07/08/17 22:11 Catapres-Tts Patch TD 0.1 mg Tu MAXIMILIANO Administration Famotidine 10 mg 07/08/17 22:00 07/10/17 21:28 Pepcid IV 10 mg BID MAXIMILIANO Administration Hydromorphone HCl 0.5 mg 07/08/17 20:56 07/10/17 20:01 Dilaudid IV 0.5 mg Q3H PRN Administration Pain , Severe (7-10) Piperacillin Sod/Tazobactam Sod 4.5 gm in 100 mls @ 200 mls/hr 07/09/17 05:00 07/11/17 06:22 Zosyn/Ns 4.5gm/100ml IV 200 mls/hr Q12H MAXIMILIANO Administration Protocol Sodium Bicarbonate 150 meq/ 1,150 mls @ 100 mls/hr 07/10/17 09:45 07/10/17 10 :17 Dextrose IV 100 mls/hr DIRECT MAXIMILIANO Administration Ondansetron HCl 4 mg 07/08/17 20:51 Zofran IV Q8H PRN N/V unrelieved by Reglan Sodium Polystyrene Sulfonate 15 gm 07/10/17 08:00 Kionex PO Q6HR PRN Hyperkalemia Subjective Date of service: 07/12/17 Interval history: Pt seen and examined, denies any pain now s/p IR guided gall bladder drainage on 07/09/17 tolerated procedure well, advance full liquid diet today ER note suggested pt might have suicidal risk, placed with sitter Did not show any suicidal risk so far, d/c sitter since 07/11/17 intraabdominal cx growing S. aureus Objective - Exam Narrative Exam: General appearance: Present: no acute distress - EENT Eyes: PERRL, EOM intact ENT: hearing intact, clear oral mucosa Ears: bilateral: normal - Neck Neck: supple, normal ROM - Respiratory Respiratory effort: normal Respiratory: bilateral: CTA - Breasts Breasts: normal - Cardiovascular Rhythm: regular Heart Sounds: Present: S1 & S2. Absent: gallop, rub Extremities: pulses intact, No edema, normal color, Full ROM - Gastrointestinal General gastrointestinal: Present: soft, non-distended, normal bowel sounds, other (right upper quadrant cholecystectomy drainage catheter on place) - Integumentary Integumentary: clear, warm, dry - Musculoskeletal Musculoskeletal: 1, strength equal bilaterally - Neurologic Neurologic: moves all extremities - Psychiatric Psychiatric: memory intact, appropriate mood/affect, intact judgment & insight - Constitutional Vitals: Vital Signs - 12hr 07/12/17 07/12/17 07/12/17 08:00 10:00 14:00 Temperature 98.7 F 99.2 F Pulse Rate 88 88 Pulse Rate [ 88 Right Radial] Respiratory 18 18 18 Rate Blood Pressure 165/86 159/88 [Left] O2 Sat by Pulse 97 97 97 Oximetry - Labs CBC & Chem 7: 07/12/17 04:10 07/12/17 04:10 Labs: Abnormal lab results 07/12/17 07/12/17 Range/Units 04:10 04:10 Hgb 11.7 L (11.8-15.2) gm/dl Hct 35.0 L (35.5-45.6) % Lymph % (Auto) 12.9 L (13.4-35.0) % [place] % (Auto) 12.5 H (0.0-7.3) % Lymph # 1.0 L (1.2-5.4) K/mm3 [place] # 1.0 H (0.0-0.8) K/mm3 Seg Neutrophils % 71.3 H (40.0-70.0) % Carbon Dioxide 21 L (22-30) mmol/L Creatinine 2.0 H (0.8-1.5) mg/dL Glucose 123 H (75-100) mg/dL Calcium 8.1 L (8.4-10.2) mg/dL
[2017-07-12] MEDS: ZOFRAN IV PRN (21:01)
[2017-07-12] MEDS: DILAUDID IV PRN (21:02)
[2017-07-13] MEDS: NACL 0.45% 1000 ML 1,000 ML IV SCH ×2 (04:15→22:01)
[2017-07-13] MEDS: ZOSYN/NS 4.5GM/100ML 4.5 GM/100 ML VIAL IV SCH (04:15)
[2017-07-13 06:02] LABS: Basophils % (Auto) 0.4 % (0.0-1.8); Eosinophils % (Auto) 3.7 % (0.0-4.3); Hematocrit 33.8 % (35.5-45.6); Hemoglobin 11.3 gm/dl (11.8-15.2); Mean Corpuscular HGB Conc 33 % (32-34); Mean Corpuscular Hemoglobin 30 pg (28-32); Mean Corpuscular Volume 90 fl (84-94); Platelet Count 296 K/mm3 (140-440); Red Blood Count 3.75 M/mm3 (3.65-5.03); White Blood Count 7.6 K/mm3 (4.5-11.0)
[2017-07-13 06:28] LABS: Calcium 7.7 mg/dL (8.4-10.2); Chloride 107.4 mmol/L (98-107); Potassium 4.2 mmol/L (3.6-5.0)
--- NOTE | 2017-07-13 07:45 | Progress Note ---
Assessment and Plan Pt feeling well without compl Abd soft, non tender advance to solid low fat diet as mhosen Selected Entries 07/13/17 05:00 Temperature 97.2 F L Respiratory 18 Rate Blood Pressure 138/78 [Left] Laboratory Tests 07/13/17 07/13/17 05:09 05:09 WBC 7.6 Hgb 11.3 L Hct 33.8 L Sodium 143 Potassium 4.2 Chloride 107.4 H BUN 16 Creatinine 2.0 H Objective Vital Signs - 12hr 07/12/17 07/12/17 07/13/17 22:00 23:00 05:00 Temperature 97.8 F 97.2 F L Pulse Rate 86 100 H Respiratory 20 18 Rate Blood Pressure 157/80 138/78 [Left] O2 Sat by Pulse 98 100 100 Oximetry - Labs 07/13/17 05:09 07/13/17 05:09 Diabetes panel 07/13/17 Range/Units 05:09 Sodium 143 (137-145) mmol/L Potassium 4.2 (3.6-5.0) mmol/L Chloride 107.4 H (98-107) mmol/L Carbon Dioxide 22 (22-30) mmol/L BUN 16 (9-20) mg/dL Creatinine 2.0 H (0.8-1.5) mg/dL Glucose 112 H (75-100) mg/dL Calcium 7.7 L (8.4-10.2) mg/dL Calcium panel 07/13/17 Range/Units 05:09 Calcium 7.7 L (8.4-10.2) mg/dL Pituitary panel 07/13/17 Range/Units 05:09 Sodium 143 (137-145) mmol/L Potassium 4.2 (3.6-5.0) mmol/L Chloride 107.4 H (98-107) mmol/L Carbon Dioxide 22 (22-30) mmol/L BUN 16 (9-20) mg/dL Creatinine 2.0 H (0.8-1.5) mg/dL Glucose 112 H (75-100) mg/dL Calcium 7.7 L (8.4-10.2) mg/dL Adrenal panel 07/13/17 Range/Units 05:09 Sodium 143 (137-145) mmol/L Potassium 4.2 (3.6-5.0) mmol/L Chloride 107.4 H (98-107) mmol/L Carbon Dioxide 22 (22-30) mmol/L BUN 16 (9-20) mg/dL Creatinine 2.0 H (0.8-1.5) mg/dL Glucose 112 H (75-100) mg/dL Calcium 7.7 L (8.4-10.2) mg/dL
[2017-07-13] MEDS: PEPCID IV SCH ×2 (09:34→21:55)
--- NOTE | 2017-07-13 09:40 | Consultation ---
History of Present Illness - Reason for Consult Consult date: 07/13/17 Reason for consult: Mental Health Evaluation Requesting physician: CHARLETTE BELLA - Chief Complaint Chief complaint: "Patient is [place] need service desk lead" - History of Present Psychiatric Illness A 56-year-old male presents with 2 days of severe abdominal pain. Psychiatry was consulted to see patient because he endorsed suicidal thoughts in the ER. Today patient is calm during assessment. There is a language barrier , patient is [place]et[place]. Attempted to use service desk lead line, but unsuccessful ( phone not working). Will follow-up in 24 hours to complete assessment. Medications and Allergies Allergies Allergy/AdvReac Type Severity Reaction Status Date / Time No Known Allergies Allergy Unverified 07/08/17 14:16 Home Medications Medication Instructions Recorded Confirmed Last Taken Type Acetaminophen [Shake That Ache] 500 mg PO Q6H 07/08/17 07/08/17 07/08/17 History AtorvaSTATin [Lipitor] 40 mg PO QHS 07/08/17 07/08/17 07/07/17 History Gabapentin [Neurontin] 100 mg PO Q8HR 07/08/17 07/08/17 07/07/17 History Ranitidine HCl [Acid Pump Servicer Helper] 150 mg PO PRN 07/08/17 07/08/17 07/08/17 History amLODIPine [Norvasc] 10 mg PO DAILY 07/08/17 07/08/17 07/07/17 History Active Meds: Active Medications Acetaminophen (Tylenol) 650 mg PO Q4H PRN PRN Reason: Pain MILD(1-3)/Fever >100.5/MOTT Bisacodyl (Dulcolax) 10 mg [place] QDAY PRN PRN Reason: Constipation unrelieved by MOM Clonidine HCl (Catapres-Tts Patch) 0.1 mg TD Tu [facility] Last Admin: 07/08/17 22:11 Dose: 0.1 mg Famotidine (Pepcid) 10 mg IV BID MAXIMILIANO Last Admin: 07/13/17 09:34 Dose: 10 mg Hydromorphone HCl (Dilaudid) 0.5 mg IV Q3H PRN PRN Reason: Pain , Severe (7-10) Last Admin: 07/12/17 21:02 Dose: 0.5 mg Piperacillin Sod/Tazobactam Sod (Zosyn/Ns 4.5gm/100ml) 4.5 gm in 100 mls @ 200 mls/hr IV Q12H MAXIMILIANO PRN Reason: Protocol Last Admin: 07/13/17 04:15 Dose: 200 mls/hr Sodium Chloride (Nacl 0.45% 1000 Ml) 1,000 mls @ 75 mls/hr IV DIRECT MAXIMILIANO Last Admin: 07/13/17 04:15 Dose: 75 mls/hr Ondansetron HCl (Zofran) 4 mg IV Q8H PRN PRN Reason: N/V unrelieved by Jewel Last Admin: 07/12/17 21:01 Dose: 4 mg Sodium Polystyrene Sulfonate (Kionex) 15 gm PO Q6HR PRN PRN Reason: Hyperkalemia Past psychiatric history - Past Medical History Past Medical History: hypertension Past Surgical History: Other (Unable to obtain) - past Psychiatric treatment and history psychiatric treatment history: Unable to obtain psy hx and fam psy hx - Social History Social history: other (Unable to obtain) Mental Status Exam - Vital signs Last Vital Signs Temp 97.2 F L 07/13/17 05:00 Pulse 100 H 07/13/17 05:00 Resp 18 07/13/17 05:00 BP 138/78 07/13/17 05:00 Pulse Ox 100 07/13/17 05:00 - Exam Narrative exam: Unable to complete MSE at this time. Results Result Diagrams: 07/13/17 05:09 07/13/17 05:09 Abnormal lab results 07/13/17 07/13/17 Range/Units 05:09 05:09 Hgb 11.3 L (11.8-15.2) gm/dl Hct 33.8 L (35.5-45.6) % [place] % (Auto) 11.3 H (0.0-7.3) % Lymph # 1.0 L (1.2-5.4) K/mm3 [place] # 0.9 H (0.0-0.8) K/mm3 Seg Neutrophils % 71.2 H (40.0-70.0) % Chloride 107.4 H (98-107) mmol/L Creatinine 2.0 H (0.8-1.5) mg/dL Glucose 112 H (75-100) mg/dL Calcium 7.7 L (8.4-10.2) mg/dL All other labs normal. Assessment and Plan Assessment and plan: Impression: Medical: Acute cholecystitis. Today patient is calm during assessment. Recommendation/Plan: Continue 1013 with 1:1 sitter. Will follow-up in 24 hours to complete assessment by using the service desk lead line. Also, gather collateral information from family.
--- NOTE | 2017-07-13 11:21 | Progress Note ---
Assessment and Plan Impression: * HOLLY * Hyperkalemia * Metabolic Acidosis * Abdominal Pain * Cholelithiasis Plan: * History renal function is stable. * Acidosis and hyperkalemia has been corrected * Serum sodium is better with hydration * Keep MAP >65 * strict i/os * avoid nephrotoxins * daily lytes * abd ct noted, no hydronephrosis * holly likely due to hypoperfusion, high risk of atn * iv abx per primary team * Shall check a bladder scan. Discussed with patient's nurse Subjective Date of service: 07/13/17 Interval history: Patient is comfortable this morning. Objective - Vital Signs Vital signs: Vital Signs - 12hr 07/13/17 07/13/17 07/13/17 05:00 08:00 10:00 Temperature 97.2 F L 98.1 F Pulse Rate 100 H 76 Pulse Rate [ 76 Right Radial] Respiratory 18 18 18 Rate Blood Pressure 138/78 160/76 [Left] O2 Sat by Pulse 100 96 96 Oximetry - General Appearance General appearance: well-developed, well-nourished, appears stated age EENT: PERRL, mucous membranes moist Neck: no JVD, no thyromegaly, no carotid bruit, supple Respiratory: Present: Clear to Ascultation Cardiology: regular, normal heart rate, S1S2, no murmurs Gastrointestinal: normoactive bowel sounds, distended (abdomen appears to be slightly distended), other (drain noted in his right upper quadrant) Integumentary: no rash, other (no edema) - Lab 07/13/17 05:09 07/13/17 05:09 Most recent lab results Calcium 7.7 mg/dL (8.4-10.2) L 07/13/17 05:09
[2017-07-13] MEDS ORDERED: VANCOMYCIN/NS 1 GM/250 ML 1 GM/250 ML BAG IV SCH ×2 (13:00→14:00)
[2017-07-13] MEDS: NORVASC PO SCH (13:15)
[2017-07-13] MEDS: NEURONTIN PO SCH ×2 (13:15→21:56)
--- NOTE | 2017-07-13 17:08 | Progress Note ---
Assessment and Plan /Sepsis Secondary to acute cholecystitis. Patient initiated on IV fluids and IV Zosyn. We'll trend WBC, culture from the gallbladder drainage growing growing MRSA will change abx to vancomycin, will discuss with ID for abx coverage and duration /Acute cholecystitis Surgery was consulted. Patient not to get cholecystostomy because of his age, being very frail and compromised renal function. IR consulted for gall bladder drainage, status post cholecystectomy catheter drainage on 07/09/17 placed IV antibiotics in the form of IV Zosyn for broad-spectrum coverage following admission Cx now growing DE LOS SANTOS, change abx to vancomycin /Hypertension Continue Catapres patch TTS 1 every weekly. We resume his oral antihypertensives /Hyperkalemia - likely from diminished excretion from kidneys due to declining function - monitor BMP, s/p Kayexalate, resolved /HOLLY/ATN could be from dehydratipn Abdomen ultrasound showed underlying CKD with medical renal disease nephrology consulted renally dose abx, iv fluid Continue to monitor BMP, renal function stable now /Hyperlipidemia We will hold the statins for time being and resume at the time of discharge /Gastroesophageal reflux disease Patient on Protonix. /Dvt Px SCD Brief History: This is 86 y/o male presented with c/o RUQ abd pain. CT abd showed distended GB wall with thickened wall and surrounding inflammation. Pt has compromised renal function, enlarged heart on X-ray and due to age he is a high surgical risk. Surgery recommended IR eval for cholecystosotomy tube drainage. Radiological data: Abdominal pelvis CT: Enlarged gallbladder with marked thickening of the gallbladder wall and extensive pericholecystic inflammatory changes echo close cholecystitis was suspected. Ultrasound of abdomen: Gallbladder sludge without evidence of medical renal disease. Hepatobiliary scan: Nonvisualization of the gallbladder consistent with acute cholecystitis. Active meds: Generic Name Dose Route Start Last Admin Trade Name Freq PRN Reason Stop Dose Admin Acetaminophen 650 mg 07/08/17 20:51 Tylenol PO Q4H PRN Pain MILD(1-3)/Fever >100.5/MOTT Amlodipine Besylate 10 mg 07/13/17 13:00 07/14/17 10:04 Norvasc PO 10 mg DAILY MAXIMILIANO Administration Atorvastatin Calcium 40 mg 07/13/17 22:00 07/13/17 21:56 Lipitor PO 40 mg QHS MAXIMILIANO Administration Bisacodyl 10 mg 07/08/17 20:51 Dulcolax OR QDAY PRN Constipation unrelieved by MOM Clonidine HCl 0.1 mg 07/08/17 22:00 07/08/17 22:11 Catapres-Tts Patch TD 0.1 mg Tu MAXIMILIANO Administration Famotidine 10 mg 07/08/17 22:00 07/14/17 10:03 Pepcid IV 10 mg BID MAXIMILIANO Administration Gabapentin 100 mg 07/13/17 14:00 07/14/17 06:41 Neurontin PO Not Given Q8HR MAXIMILIANO Hydromorphone HCl 0.5 mg 07/08/17 20:56 07/13/17 21:56 Dilaudid IV 0.5 mg Q3H PRN Administration Pain , Severe (7-10) Vancomycin HCl 1 gm in 250 mls @ 125 mls/hr 07/13/17 14:00 07/13/17 13:15 Vancomycin/Ns 1 Gm/250 Ml IV 125 mls/hr Q36H MAXIMILIANO Administration Ondansetron HCl 4 mg 07/08/17 20:51 07/13/17 21:55 Zofran IV 4 mg Q8H PRN Administration N/V unrelieved by Reglan Sodium Polystyrene Sulfonate 15 gm 07/10/17 08:00 Kionex PO Q6HR PRN Hyperkalemia Microbiology 07/09/17 16:17 Gallbladder Fluid Surgical Culture - Final Methicillin Resist S. Aureus Subjective Date of service: 07/13/17 Interval history: Pt seen and examined, denies any pain now s/p IR guided gall bladder drainage on 07/09/17 tolerated procedure well, advance full liquid diet today intraabdominal cx growing MRSA advance diet to solid food today Objective - Exam Narrative Exam: General appearance: Present: no acute distress - EENT Eyes: PERRL, EOM intact ENT: hearing intact, clear oral mucosa Ears: bilateral: normal - Neck Neck: supple, normal ROM - Respiratory Respiratory effort: normal Respiratory: bilateral: CTA - Breasts Breasts: normal - Cardiovascular Rhythm: regular Heart Sounds: Present: S1 & S2. Absent: gallop, rub Extremities: pulses intact, No edema, normal color, Full ROM - Gastrointestinal General gastrointestinal: Present: soft, non-distended, normal bowel sounds, other (right upper quadrant cholecystectomy drainage catheter on place) - Integumentary Integumentary: clear, warm, dry - Musculoskeletal Musculoskeletal: 1, strength equal bilaterally - Neurologic Neurologic: moves all extremities - Psychiatric Psychiatric: memory intact, appropriate mood/affect, intact judgment & insight - Constitutional Vitals: Vital Signs - 12hr 07/13/17 07/13/17 07/13/17 08:00 10:00 13:15 Temperature 98.1 F Pulse Rate 76 94 H Pulse Rate [ 76 Right Radial] Respiratory 18 18 Rate Blood Pressure 162/67 Blood Pressure 160/76 [Left] O2 Sat by Pulse 96 96 Oximetry 07/13/17 13:46 Temperature 98 F Pulse Rate 92 H Pulse Rate [ Right Radial] Respiratory 18 Rate Blood Pressure Blood Pressure 162/67 [Left] O2 Sat by Pulse 97 Oximetry - Labs CBC & Chem 7: 07/14/17 03:39 07/14/17 03:39 Labs: Abnormal lab results 07/13/17 07/13/17 Range/Units 05:09 05:09 Hgb 11.3 L (11.8-15.2) gm/dl Hct 33.8 L (35.5-45.6) % Baker % (Auto) 11.3 H (0.0-7.3) % Lymph # 1.0 L (1.2-5.4) K/mm3 Baker # 0.9 H (0.0-0.8) K/mm3 Seg Neutrophils % 71.2 H (40.0-70.0) % Chloride 107.4 H (98-107) mmol/L Creatinine 2.0 H (0.8-1.5) mg/dL Glucose 112 H (75-100) mg/dL Calcium 7.7 L (8.4-10.2) mg/dL
[2017-07-13] MEDS: ZOFRAN IV PRN (21:55)
[2017-07-13] MEDS: DILAUDID IV PRN (21:56)
[2017-07-14 04:02] LABS: Basophils % (Auto) 0.6 % (0.0-1.8); Eosinophils % (Auto) 4.2 % (0.0-4.3); Hematocrit 34.4 % (35.5-45.6); Hemoglobin 11.6 gm/dl (11.8-15.2); Mean Corpuscular HGB Conc 34 % (32-34); Mean Corpuscular Hemoglobin 30 pg (28-32); Mean Corpuscular Volume 90 fl (84-94); Platelet Count 335 K/mm3 (140-440); Red Blood Count 3.84 M/mm3 (3.65-5.03); Red Cell Distribution Width 14.4 % (13.2-15.2); White Blood Count 9.2 K/mm3 (4.5-11.0)
[2017-07-14 04:19] LABS: Calcium 8.3 mg/dL (8.4-10.2); Chloride 105.8 mmol/L (98-107); Potassium 4.2 mmol/L (3.6-5.0)
[2017-07-14] MEDS: NEURONTIN PO SCH ×2 (06:41→13:30)
--- NOTE | 2017-07-14 09:11 | Progress Note ---
Assessment and Plan Impression: * HOLLY * Hyperkalemia * Metabolic Acidosis * Abdominal Pain * Cholelithiasis Plan: * His renal function is stable. * Acidosis and hyperkalemia has been corrected * Serum sodium is better with hydration * Keep MAP >65 * strict i/os * avoid nephrotoxins * abd ct noted, no hydronephrosis * holly likely due to hypoperfusion, high risk of atn * iv abx per primary team * His bladder scan did not certainly significant amount of urine. He is passing urine without any difficulty at this time as well. Shall discontinue his IV fluid for now Subjective Date of service: 07/14/17 Interval history: Patient is awake and alert. Appears comfortable. Eating fairly well per nursing staff. Objective - Vital Signs Vital signs: Vital Signs - 12hr 07/14/17 04:00 Temperature 97.3 F L Pulse Rate 78 Respiratory 20 Rate Blood Pressure 155/76 [Left] - General Appearance General appearance: well-developed, well-nourished, appears stated age EENT: PERRL, mucous membranes moist Neck: no JVD, no thyromegaly, no carotid bruit, supple Respiratory: Present: Clear to Ascultation Cardiology: regular, normal heart rate, S1S2, no murmurs Gastrointestinal: normoactive bowel sounds, other (drain noted in his right upper quadrant) - Lab 07/14/17 03:39 07/14/17 03:39 Most recent lab results Calcium 8.3 mg/dL (8.4-10.2) L 07/14/17 03:39
[2017-07-14] MEDS: PEPCID IV SCH (10:03)
[2017-07-14] MEDS: NORVASC PO SCH (10:04)
--- NOTE | 2017-07-14 12:47 | Progress Note ---
Assessment and Plan Pt feeling well without compl. mohsen solid diet Abd soft, non tender + MRSA in bile cult. surgically stable. antibiotics as per ID pt will need to keep cholecystostomy tube x 6-8 wks. (will need to be d/c'ed with drain) Family will need teaching for drain management and output recording Then will make arrangements for semi elective open cholecystectomy if medically cleared and stable at that time. will follow in office as outpt Selected Entries 07/14/17 10:05 Temperature 98.2 F Pulse Rate 85 Blood Pressure 169/82 [Left] Laboratory Tests 07/14/17 07/14/17 03:39 03:39 WBC 9.2 Hgb 11.6 L Hct 34.4 L Sodium 140 Potassium 4.2 Chloride 105.8 Carbon Dioxide 21 L BUN 16 Creatinine 2.0 H Objective Vital Signs - 12hr 07/14/17 07/14/17 07/14/17 04:00 10:00 10:04 Temperature 97.3 F L Pulse Rate 78 85 Pulse Rate [ 85 Right Radial] Respiratory 20 18 Rate Respiratory 18 Rate [Right Abdomen] Blood Pressure 169/82 Blood Pressure 155/76 [Left] O2 Sat by Pulse 98 Oximetry 07/14/17 10:05 Temperature 98.2 F Pulse Rate 85 Pulse Rate [ Right Radial] Respiratory 18 Rate Respiratory Rate [Right Abdomen] Blood Pressure Blood Pressure 169/82 [Left] O2 Sat by Pulse Oximetry - Labs 07/14/17 03:39 07/14/17 03:39 Diabetes panel 07/14/17 Range/Units 03:39 Sodium 140 (137-145) mmol/L Potassium 4.2 (3.6-5.0) mmol/L Chloride 105.8 (98-107) mmol/L Carbon Dioxide 21 L (22-30) mmol/L BUN 16 (9-20) mg/dL Creatinine 2.0 H (0.8-1.5) mg/dL Glucose 105 H (75-100) mg/dL Calcium 8.3 L (8.4-10.2) mg/dL Calcium panel 07/14/17 Range/Units 03:39 Calcium 8.3 L (8.4-10.2) mg/dL Pituitary panel 07/14/17 Range/Units 03:39 Sodium 140 (137-145) mmol/L Potassium 4.2 (3.6-5.0) mmol/L Chloride 105.8 (98-107) mmol/L Carbon Dioxide 21 L (22-30) mmol/L BUN 16 (9-20) mg/dL Creatinine 2.0 H (0.8-1.5) mg/dL Glucose 105 H (75-100) mg/dL Calcium 8.3 L (8.4-10.2) mg/dL Adrenal panel 07/14/17 Range/Units 03:39 Sodium 140 (137-145) mmol/L Potassium 4.2 (3.6-5.0) mmol/L Chloride 105.8 (98-107) mmol/L Carbon Dioxide 21 L (22-30) mmol/L BUN 16 (9-20) mg/dL Creatinine 2.0 H (0.8-1.5) mg/dL Glucose 105 H (75-100) mg/dL Calcium 8.3 L (8.4-10.2) mg/dL
[2017-07-14 14:59] VITALS: BP 151/72
[2017-07-14] MEDS ORDERED: VIBRAMYCIN PO SCH (15:00)
--- NOTE | 2017-07-14 15:53 | Discharge Summary ---
Providers - Providers Date of Admission: 07/08/17 20:51 Date of discharge: 07/14/17 Attending physician: AUDRA MULLINS 07/08/17 21:07 Consult to Mental Health [CONS] Routine Reason For Exam: delirium/Suicidal Place consult to:: ann marie Notified:: yes Phone number called:: [phone] If yes, spoke with:: ann marie Time called:: 08:30 Comment:: kassandra 07/10/17 07:57 Consult to Physician [CONS] Routine Consulting Provider: JOSE G URBINA Reason For Exam: renal insuf Place consult to:: ANSWERING SERVICE Notified:: YES If yes, spoke with:: PETER Time called:: 08:03 Comment:: KASSANDRA 07/13/17 13:05 Physical Therapy Evaluation and Treat [CONS] Routine Comment: Reason For Exam: placement 07/14/17 12:07 Consult to Physician [CONS] Routine Consulting Provider: COLBY ZIEGLER Reason For Exam: abx recommendation Place consult to:: answering machine Notified:: yes Phone number called:: [phone] Time called:: 12:15 Comment:: kassandra Primary care physician: JAYJAY PERALES Hospitalization Condition: Stable Hospital course: Discharge Diagnosis and management: /Sepsis Secondary to acute cholecystitis. Patient initiated on IV fluids and IV Zosyn. We'll trend WBC, culture from the gallbladder drainage growing growing MRSA will change abx to vancomycin, will discuss with ID for abx coverage and duration /Acute cholecystitis Surgery was consulted. Patient not to get cholecystostomy because of his age, being very frail and compromised renal function. IR consulted for gall bladder drainage, status post cholecystectomy catheter drainage on 07/09/17 placed IV antibiotics in the form of IV Zosyn for broad-spectrum coverage following admission Cx now growing DE LOS SANTOS, change abx to vancomycin /Hypertension Continue Catapres patch TTS 1 every weekly. We resume his oral antihypertensives /Hyperkalemia - likely from diminished excretion from kidneys due to declining function - monitor BMP, s/p Kayexalate, resolved /HOLLY/ATN could be from dehydratipn Abdomen ultrasound showed underlying CKD with medical renal disease nephrology consulted renally dose abx, iv fluid Continue to monitor BMP, renal function stable now /Hyperlipidemia We will hold the statins for time being and resume at the time of discharge /Gastroesophageal reflux disease Patient on Protonix. /Dvt Px SCD Brief History: This is 86 y/o male presented with c/o RUQ abd pain. CT abd showed distended GB wall with thickened wall and surrounding inflammation. Pt has compromised renal function, enlarged heart on X-ray and due to age he is a high surgical risk. Surgery recommended IR eval for cholecystosotomy tube drainage. Time spent for discharge: 32 minutes Core Measure Documentation - Palliative Care Palliative Care/ Comfort Measures: Not Applicable - Core Measures Any of the following diagnoses?: none Exam - Physical Exam Narrative exam: General appearance: Present: no acute distress - EENT Eyes: PERRL, EOM intact ENT: hearing intact, clear oral mucosa Ears: bilateral: normal - Neck Neck: supple, normal ROM - Respiratory Respiratory effort: normal Respiratory: bilateral: CTA - Breasts Breasts: normal - Cardiovascular Rhythm: regular Heart Sounds: Present: S1 & S2. Absent: gallop, rub Extremities: pulses intact, No edema, normal color, Full ROM - Gastrointestinal General gastrointestinal: Present: soft, non-distended, normal bowel sounds, other (right upper quadrant cholecystectomy drainage catheter on place) - Integumentary Integumentary: clear, warm, dry - Musculoskeletal Musculoskeletal: 1, strength equal bilaterally - Neurologic Neurologic: moves all extremities - Psychiatric Psychiatric: memory intact, appropriate mood/affect, intact judgment & insight - Constitutional Vitals: Temp Pulse Resp BP Pulse Ox 98.2 F 78 18 151/72 97 07/14/17 14:00 07/14/17 14:00 07/14/17 10:05 07/14/17 14:00 07/14/17 14:00 Plan Activity: up only with assistance Weight Bearing Status: Non-Weight Bearing Diet: other (GI soft diet) Wound: per your surgeon's advice, per wound nurse instructions Additional Instructions: Complete 2 weeks of antibiotic. Continue drainage for 8 weeks. f/u with surgeon in one week Follow up with: PRIMARY CARE, [Referring] - 3-5 Days Prescriptions: Doxycycline [Vibramycin CAP] 100 mg PO BID 14 Days Oxycodone HCl/Acetaminophen [Percocet 2.5/325 mg] 1 each PO Q6HR PRN #20 tablet PRN Reason: Pain
--- NOTE | 2017-07-14 16:33 | Progress Note ---
Subjective - Reason for Consult Consult date: 07/14/17 Reason for consult: Psychiatry Follow-up - Chief Complaint Chief complaint: "Hello" A 56-year-old male presents with 2 days of severe abdominal pain. Psychiatry was consulted to see patient because he endorsed suicidal thoughts in the ER. Today patient is calm and cooperative during the assessment. Gymnasium Teacher line (ID number [id number]) was used. Patient stated that he was "never " suicidal and don't remember telling any staff that he had SI's or suicidal thoughts on admission. He stated being "Sikhism" and wanting to is against his muslim. He denies a mental health dx. He stated that he came to the hospital because he felt sick. He denies SI/HI's, AVH's, and depression. He denies recreational drug use and excessive alcohol consumption (etoh). Per the staff, the patient have been compliant with his medications and no behavioral disturbances overnight. Mental Status Exam - Vital signs Last Vital Signs Temp 98.2 F 07/14/17 14:00 Pulse 78 07/14/17 14:00 Resp 18 07/14/17 10:05 BP 151/72 07/14/17 14:00 Pulse Ox 97 07/14/17 14:00 - Exam Narrative exam: MSE: Appearance: calm, cooperative Behavior: regular eye contact Speech: regular rate and tone Mood: "tired" Affect: congruent to mood Thought Process: linear Thought Content: denies SI/HI's and AVH's Motor Activity: sitting up in bed Cognition: A/O x3 Insight: fair Judgment: fair Assessment and Plan Impression: Medical: Acute cholecystitis. Today patient is calm and cooperative during assessment. Patient is no threat to self. Recommendation/Plan: Rescind 1013. Patient does not meet criteria.
== END 2017-07-14 17:22 | disposition home health service (06) | DRG 871 ==
LOC: ED 12:32 → 3A 20:51 → CC2 23:13
PROVIDERS: ADMIT Internal Medicine; ATTEND Internal Medicine
PROC: 0F9430Z Drainage of Gallbladder with Drainage Device, Percutaneous Approach (ICD-10-PCS; principal; 2017-07-09)
DX: A41.9 Sepsis, unspecified organism (principal); N17.0 Acute kidney failure with tubular necrosis; R45.851 Suicidal ideations; K80.00 Calculus of gallbladder with acute cholecystitis without obstruction; E87.2 Acidosis; I10 Essential (primary) hypertension; E78.5 Hyperlipidemia, unspecified; K21.9 Gastro-esophageal reflux disease without esophagitis; E87.5 Hyperkalemia; R41.0 Disorientation, unspecified; Z82.49 Family history of ischemic heart disease and other diseases of the circulatory system; Z79.899 Other long term (current) drug therapy
CPT/HCPCS: 36415; 47490; 74176; 76705; 78226; 80048; 80053; 80074; 81001; 82140; 82150; 82962; 83036; 83690; 84550; 85007; 85025; 85610; 85730; 86403; 87076; 87116; 87186; A9270-GY; A9537; C1729; C1751; C1769; J0610; J1170; J1815; J2060; J2250; J2405; J2543; J3010; J3370; J7030; J7040; J7050; J7070; Q9967

== ENCOUNTER 2019-11-27 22:49 | Emergency (ER) | payer OTHER ==
--- NOTE | 2019-11-28 01:48 | XRay Report ---
CHEST 1 VIEW INDICATION: STEW. COMPARISON: 08/12/2017 FINDINGS: Support devices: None. Heart: Normal. Lungs/Pleura: No acute pulmonary or pleural findings. IMPRESSION: 1. No acute findings. Signer Name: Carlos Bustamante MD Signed: 11/28/2019 1:44 AM Workstation Name: [id number]
[2019-11-28 02:11] LABS: Basophils % (Auto) 0.2 % (0.0-1.8); Eosinophils # (Auto) 0.4 K/mm3 (0.0-0.4); Eosinophils % (Auto) 5.4 % (0.0-4.3); Hematocrit 34.9 % (35.5-45.6); Hemoglobin 11.4 gm/dl (11.8-15.2); Lymphocytes # (Auto) 1.2 K/mm3 (1.2-5.4); Lymphocytes % (Auto) 16.4 % (13.4-35.0); Mean Corpuscular HGB Conc 33 % (32-34); Mean Corpuscular Volume 94 fl (84-94); Monocytes # (Auto) 0.7 K/mm3 (0.0-0.8); Monocytes % (Auto) 9.2 % (0.0-7.3); Platelet Count 256 K/mm3 (140-440); Red Blood Count 3.73 M/mm3 (3.65-5.03); Red Cell Distribution Width 14.5 % (13.2-15.2)
[2019-11-28 02:30] LABS: Calcium 9.8 mg/dL (8.4-10.2)
[2019-11-28 03:30] VITALS: BP 180/81
--- NOTE | 2019-11-28 03:47 | Emergency Department Report ---
ED General Adult HPI - General Chief complaint: Dyspnea/Respdistress Stated complaint: STEW Time Seen by Provider: 11/28/19 03:28 Source: patient Mode of arrival: Ambulatory Limitations: No Limitations - History of Present Illness Initial comments: Mr. Kim is an 89 yo male with hx of stage IV CKD, HTN, HLD, GERD, PUD who presents with shortness of breath. Shortness of breath was short-lived only lasting for a few hours. No chest pain. +nonproductive cough. BP medication changed from amlodipine to chlorthalidone 2 days ago by PCP. Home BP 164/74. Grandson and son provided hx and maori interpretation. -: Gradual, This evening Severity scale (0 -10): 0 Consistency: now resolved Improves with: none Worsens with: none Associated Symptoms: cough - Related Data Previous Rx's Medication Instructions Recorded Last Taken Type Oxycodone HCl/Acetaminophen 1 each PO Q6HR PRN #20 tablet 07/14/17 Unknown Rx [Percocet 2.5/325 mg] AtorvaSTATin [Lipitor] 40 mg PO QHS #30 tablet 08/15/17 Unknown Rx Gabapentin 100 mg PO Q8HR #90 capsule 08/15/17 Unknown Rx Multivitamin Tab W-MINERAL 1 each PO QDAY #30 tablet 08/15/17 Unknown Rx [Multiple Vitamin/Mineral (Theragran M)] Oxycodone HCl/Acetaminophen 1 each PO Q6HR PRN #10 tablet 08/15/17 Unknown Rx [Percocet 2.5/325 mg] Pantoprazole [Protonix TAB] 40 mg PO BID #60 tablet 08/15/17 Unknown Rx Phosphorus #1 [K-Phos Neutral] 250 mg PO QID #30 tablet 08/15/17 Unknown Rx amLODIPine 10 mg PO DAILY #30 tablet 08/15/17 Unknown Rx Allergies Allergy/AdvReac Type Severity Reaction Status Date / Time No Known Allergies Allergy Unverified 07/08/17 14:16 ED Review of Systems ROS: Stated complaint: STEW Other details as noted in HPI Comment: All other systems reviewed and negative Constitutional: denies: fever, malaise Respiratory: cough, shortness of breath Cardiovascular: denies: chest pain ED Past Medical Hx - Past Medical History Previous Medical History?: Yes Hx Hypertension: Yes (hyperlipidemia) Hx GERD: Yes Hx Renal Disease: Yes (result of dehydration) Additional medical history: High Cholesterol, Neuropathy - Surgical History Past Surgical History?: Yes Hx Cholecystectomy: Yes - Social History Smoking Status: Never Smoker Substance Use Type: None - Medications Home Medications: Home Medications Medication Instructions Recorded Confirmed Last Taken Type Oxycodone HCl/Acetaminophen 1 each PO Q6HR PRN #20 tablet 07/14/17 08/01/17 Unknown Rx [Percocet 2.5/325 mg] AtorvaSTATin [Lipitor] 40 mg PO QHS #30 tablet 08/15/17 Unknown Rx Gabapentin 100 mg PO Q8HR #90 capsule 08/15/17 Unknown Rx Multivitamin Tab W-MINERAL 1 each PO QDAY #30 tablet 08/15/17 Unknown Rx [Multiple Vitamin/Mineral (Theragran M)] Oxycodone HCl/Acetaminophen 1 each PO Q6HR PRN #10 tablet 08/15/17 Unknown Rx [Percocet 2.5/325 mg] Pantoprazole [Protonix TAB] 40 mg PO BID #60 tablet 08/15/17 Unknown Rx Phosphorus #1 [K-Phos Neutral] 250 mg PO QID #30 tablet 08/15/17 Unknown Rx amLODIPine 10 mg PO DAILY #30 tablet 08/15/17 Unknown Rx ED Physical Exam - General Limitations: Language Barrier General appearance: alert, in no apparent distress - Head Head exam: Present: atraumatic, normocephalic - Eye Eye exam: Present: normal appearance - ENT ENT exam: Present: mucous membranes moist - Neck Neck exam: Present: normal inspection, full ROM - Respiratory Respiratory exam: Present: normal lung sounds bilaterally. Absent: respiratory distress, wheezes, rales, rhonchi - Cardiovascular Cardiovascular Exam: Present: regular rate, normal rhythm, normal heart sounds. Absent: systolic murmur, diastolic murmur, rubs, gallop - GI/Abdominal GI/Abdominal exam: Present: soft, normal bowel sounds. Absent: distended, tenderness, guarding, rebound - Rectal Rectal exam: Present: deferred - Extremities Exam Extremities exam: Present: normal inspection - Neurological Exam Neurological exam: Present: alert, oriented X3 - Psychiatric Psychiatric exam: Present: normal mood, flat affect - Skin Skin exam: Present: warm, dry, intact, normal color. Absent: rash ED Course Vital Signs 11/27/19 11/28/19 11/28/19 22:58 03:29 03:39 Temperature 98.4 F 97.7 F Pulse Rate 74 77 Respiratory 18 19 20 Rate Blood Pressure 164/76 Blood Pressure 180/81 [Right] O2 Sat by Pulse 98 100 100 Oximetry ED Medical Decision Making - Lab Data Result diagrams: 11/28/19 02:00 11/28/19 02:00 - EKG Data 11/28/19 03:45 EKG obtained 0108 normal sinus rhythm rate 70 bpm normal axis normal intervals no ST elevation nonischemic T wave pattern - Radiology Data Radiology results: report reviewed Chest radiograph: No acute findings according radiology impression - Medical Decision Making 1. Shortness of breath: No evidence of pneumonia ACS CHF on today's evaluation 2. Chronic kidney disease appears to be stable according to son's report 3. Hypertensive urgency, new blood pressure medicine, recommended blood pre ssure monitoring at home Critical care attestation.: If time is entered above; I have spent that time in minutes in the direct care of this critically ill patient, excluding procedure time. ED Disposition Clinical Impression: Shortness of breath, Hypertensive urgency, Chronic kidney disease Disposition: DC-01 TO HOME OR SELFCARE Is pt being admited?: No Does the pt Need Aspirin: No Condition: Stable Instructions: Dyspnea (ED) Referrals: PRIMARY CARE, [Referring] - 3-5 Days
== END 2019-11-28 04:00 | disposition home or self-care (01) ==
LOC: ED 22:49
DX: I16.0 Hypertensive urgency (principal); I12.9 Hypertensive chronic kidney disease with stage 1 through stage 4 chronic kidney disease, or unspecified chronic kidney disease; N18.4 Chronic kidney disease, stage 4 (severe); K21.9 Gastro-esophageal reflux disease without esophagitis; Z98.890 Other specified postprocedural states; Z90.49 Acquired absence of other specified parts of digestive tract; Z79.899 Other long term (current) drug therapy
CPT/HCPCS: 36415; 71045; 80048; 83880; 84484; 85025; 93005; 93010

== ENCOUNTER 2020-01-30 20:40 | Emergency (ER) | payer OTHER ==
--- NOTE | 2020-01-30 21:54 | Emergency Department Report ---
ED ENT HPI - General Chief complaint: Earache Stated complaint: RT EAR PAIN Time Seen by Provider: 01/30/20 21:34 Source: patient, family Mode of arrival: Wheelchair Limitations: Language Barrier - History of Present Illness Initial comments: Language interpretation by patient's grandson Patient is a 89-year-old male who presents emergency room with complaints of right ear pain that began 3 days ago. The grandson denies any fever, sore throat, cough, shortness of breath, difficulty swallowing, nausea, vomiting, diarrhea, any other symptoms. He states that they use some [id number] ear relief drops but he is still complaining of discomfort. No allergies to medications. - Related Data Previous Rx's Medication Instructions Recorded Last Taken Type Oxycodone HCl/Acetaminophen 1 each PO Q6HR PRN #20 tablet 07/14/17 Unknown Rx [Percocet 2.5/325 mg] AtorvaSTATin [Lipitor] 40 mg PO QHS #30 tablet 08/15/17 Unknown Rx Gabapentin 100 mg PO Q8HR #90 capsule 08/15/17 Unknown Rx Multivitamin Tab W-MINERAL 1 each PO QDAY #30 tablet 08/15/17 Unknown Rx [Multiple Vitamin/Mineral (Theragran M)] Oxycodone HCl/Acetaminophen 1 each PO Q6HR PRN #10 tablet 08/15/17 Unknown Rx [Percocet 2.5/325 mg] Pantoprazole [Protonix TAB] 40 mg PO BID #60 tablet 08/15/17 Unknown Rx Phosphorus #1 [K-Phos Neutral] 250 mg PO QID #30 tablet 08/15/17 Unknown Rx amLODIPine 10 mg PO DAILY #30 tablet 08/15/17 Unknown Rx Acetaminophen [Tylenol] 650 mg PO Q8HR PRN #20 capsule 01/30/20 Unknown Rx Amoxicillin/Potassium Clav 1 each PO BID 10 Days #20 tablet 01/30/20 Unknown Rx [Augmentin 500-125 Tablet] Ofloxacin 0.3% [Floxin 0.3% Otic] 10 drops AD DAILY 10 Days #1 bottle 01/30/20 Unknown Rx Allergies Allergy/AdvReac Type Severity Reaction Status Date / Time No Known Allergies Allergy Unverified 07/08/17 14:16 ED Dental HPI - General Chief complaint: Earache Stated complaint: RT EAR PAIN Time Seen by Provider: 01/30/20 21:34 Source: patient Mode of arrival: Wheelchair Limitations: No Limitations - Related Data Previous Rx's Medication Instructions Recorded Last Taken Type Oxycodone HCl/Acetaminophen 1 each PO Q6HR PRN #20 tablet 07/14/17 Unknown Rx [Percocet 2.5/325 mg] AtorvaSTATin [Lipitor] 40 mg PO QHS #30 tablet 08/15/17 Unknown Rx Gabapentin 100 mg PO Q8HR #90 capsule 08/15/17 Unknown Rx Multivitamin Tab W-MINERAL 1 each PO QDAY #30 tablet 08/15/17 Unknown Rx [Multiple Vitamin/Mineral (Theragran M)] Oxycodone HCl/Acetaminophen 1 each PO Q6HR PRN #10 tablet 08/15/17 Unknown Rx [Percocet 2.5/325 mg] Pantoprazole [Protonix TAB] 40 mg PO BID #60 tablet 08/15/17 Unknown Rx Phosphorus #1 [K-Phos Neutral] 250 mg PO QID #30 tablet 08/15/17 Unknown Rx amLODIPine 10 mg PO DAILY #30 tablet 08/15/17 Unknown Rx Acetaminophen [Tylenol] 650 mg PO Q8HR PRN #20 capsule 01/30/20 Unknown Rx Amoxicillin/Potassium Clav 1 each PO BID 10 Days #20 tablet 01/30/20 Unknown Rx [Augmentin 500-125 Tablet] Ofloxacin 0.3% [Floxin 0.3% Otic] 10 drops AD DAILY 10 Days #1 bottle 01/30/20 Unknown Rx Allergies Allergy/AdvReac Type Severity Reaction Status Date / Time No Known Allergies Allergy Unverified 07/08/17 14:16 ED Review of Systems ROS: Stated complaint: RT EAR PAIN Other details as noted in HPI Comment: All other systems reviewed and negative ED Past Medical Hx - Past Medical History Previous Medical History?: Yes Hx Hypertension: Yes (hyperlipidemia) Hx GERD: Yes Hx Renal Disease: Yes (result of dehydration) Additional medical history: High Cholesterol, Neuropathy - Surgical History Past Surgical History?: Yes Hx Cholecystectomy: Yes - Social History Smoking Status: Never Smoker - Medications Home Medications: Home Medications Medication Instructions Recorded Confirmed Last Taken Type Oxycodone HCl/Acetaminophen 1 each PO Q6HR PRN #20 tablet 07/14/17 08/01/17 Unknown Rx [Percocet 2.5/325 mg] AtorvaSTATin [Lipitor] 40 mg PO QHS #30 tablet 08/15/17 Unknown Rx Gabapentin 100 mg PO Q8HR #90 capsule 08/15/17 Unknown Rx Multivitamin Tab W-MINERAL 1 each PO QDAY #30 tablet 08/15/17 Unknown Rx [Multiple Vitamin/Mineral (Theragran M)] Oxycodone HCl/Acetaminophen 1 each PO Q6HR PRN #10 tablet 08/15/17 Unknown Rx [Percocet 2.5/325 mg] Pantoprazole [Protonix TAB] 40 mg PO BID #60 tablet 08/15/17 Unknown Rx Phosphorus #1 [K-Phos Neutral] 250 mg PO QID #30 tablet 08/15/17 Unknown Rx amLODIPine 10 mg PO DAILY #30 tablet 08/15/17 Unknown Rx Acetaminophen [Tylenol] 650 mg PO Q8HR PRN #20 capsule 01/30/20 Unknown Rx Amoxicillin/Potassium Clav 1 each PO BID 10 Days #20 tablet 01/30/20 Unknown Rx [Augmentin 500-125 Tablet] Ofloxacin 0.3% [Floxin 0.3% Otic] 10 drops AD DAILY 10 Days #1 bottle 01/30/20 Unknown Rx ED Physical Exam - General Limitations: No Limitations General appearance: alert, in no apparent distress - Head Head exam: Present: atraumatic, normocephalic - Eye Eye exam: Present: normal appearance - ENT ENT exam: Present: normal orophraynx, mucous membranes moist, other (left TM and canal are normal, pt has discomfort upon placing speculum for ear canal examination of the right ear, there is purulent drainage in the right ear canal, difficult to visualize right TM, difficult to visualize for TM perforation, no tonsilar hypertrophy or exudates, no mastoid ttp bilaterally) - Neurological Exam Neurological exam: Present: alert, oriented X3 - Psychiatric Psychiatric exam: Present: normal affect, normal mood - Skin Skin exam: Present: warm, dry, intact ED Course Vital Signs 01/30/20 01/30/20 21:20 22:07 Temperature 97.7 F 98.2 F Pulse Rate 94 H 82 Respiratory 18 20 Rate Blood Pressure 132/69 Blood Pressure 131/69 [Left] O2 Sat by Pulse 99 99 Oximetry ED Medical Decision Making - Medical Decision Making Language interpretation by patient's grandson Patient is a 89-year-old male who presents emergency room with complaints of right ear pain that began 3 days ago. The grandson denies any fever, sore throat, cough, shortness of breath, difficulty swallowing, nausea, vomiting, diarrhea, any other symptoms. He states that they use some [id number] ear relief drops but he is still complaining of discomfort. No allergies to medications. Vitals are normal. On exam:left TM and canal are normal, pt has discomfort upon placing speculum for ear canal examination of the right ear, there is purulent drainage in the right ear canal, difficult to visualize right TM, difficult to visualize for TM perforation, no tonsilar hypertrophy or exudates, no mastoid ttp bilaterally. Examination consistent with otitis externa and possible otitis media with TM perforation. It is very difficult to visualize the TM. Patient will be treated for otitis externa and otitis media. Given prescription for Augmentin that was renally dosed, and ofloxacin antibiotic eardrops. advised to Please use medication as prescribed. May give Tylenol as needed for discomfort. Please follow-up in 2 to 3 days, need to have ear recheck. Return to the emergency room for any new or worsening symptoms. Patient referred to primary care doctor and ENT doctor. - Differential Diagnosis Otitis media, otitis externa, mastoiditis, tonsillitis, peritonsillar absce Critical care attestation.: If time is entered above; I have spent that time in minutes in the direct care of this critically ill patient, excluding procedure time. ED Disposition Clinical Impression: Otitis media Qualifiers: Otitis media type: suppurative Chronicity: acute Laterality: right Recurrence: non-recurrent Spontaneous tympanic membrane rupture: with spontaneous rupture Qualified Code(s): H66.011 - Acute suppurative otitis media with spontaneous rupture of ear drum, right ear Otitis externa Qualifiers: Otitis externa type: unspecified type Chronicity: acute Laterality: right Qualified Code(s): H60.501 - Unspecified acute noninfective otitis externa, right ear Disposition: DC-01 TO HOME OR SELFCARE Is pt being admited?: No Does the pt Need Aspirin: No Condition: Stable Instructions: Otitis Externa (ED), Otitis Media (ED) Additional Instructions: Please use medication as prescribed. May give Tylenol as needed for discomfort. Please follow-up in 2 to 3 days, need to have ear recheck. Return to the emergency room for any new or worsening symptoms. Prescriptions: Amoxicillin/Potassium Clav [Augmentin 500-125 Tablet] 1 each PO BID 10 Days #20 tablet Ofloxacin 0.3% [Floxin 0.3% Otic] 10 drops AD DAILY 10 Days #1 bottle Acetaminophen [Tylenol] 650 mg PO Q8HR PRN #20 capsule PRN Reason: pain Referrals: [facility] MD IVY [Primary Care Provider] - 2-3 Days RITA BEDOYA MD [Staff Physician] - 2-3 Days [place] CERON MD [Staff Physician] - 2-3 Days Time of Disposition: 21:51 Print Language: [place]
[2020-01-30 22:08] VITALS: BP 131/69
== END 2020-01-30 22:07 | disposition home or self-care (01) ==
LOC: ED 20:40
DX: H66.91 Otitis media, unspecified, right ear (principal); H60.91 Unspecified otitis externa, right ear; I10 Essential (primary) hypertension; E78.5 Hyperlipidemia, unspecified; K21.9 Gastro-esophageal reflux disease without esophagitis; Z90.49 Acquired absence of other specified parts of digestive tract
CPT/HCPCS: 99282